=== PATIENT | male | born 1955 | race Caucasian/White ===

== ENCOUNTER → 2016-09-30 | Outpatient (CLI) | payer OTHER ==
[~2016-09-30] MED LIST: ALLO300T2 PO; AMLO2.5T PO; AMOX875T3 PO; ASPCH81X PO; ASPI81TA28 PO; ATOV5SUS PO; CHOL2000 PO; COEN150C PO; GUAI1TAB68 PO; INSPMPHMLG; LORA-741 PO; LORA0.5T12 PO; LOSA1TAB PO; LOSA50TA6 PO; LPR25 PO; MAGNESIUM PO; MULT-506 PO; NTRGSL/4 UT; NYSS/ PO; OMEG10007 PO; ONDA4TAB46 PO; PROTEIN PO; RANO500T PO; ROSU10TA35 PO; SIRO1TAB PO; SULF1TAB92 PO; VLT500 PO; [UNRECOGNIZED DRUG - CODE] PO
[2016-09-30 15:15] LABS: CHOLESTEROL/HDL RATIO 6.6
== END | disposition home or self-care (01) ==
LOC: C.LAB 13:11
PROVIDERS: ATTEND Internal Medicine Cardiovascular Disease
DX: E78.5 Hyperlipidemia, unspecified (principal)

== ENCOUNTER 2017-01-24 01:00 | Emergency (ER) | payer OTHER ==
[~2017-01-24] VITALS: Ht 182.9 cm; Wt 91.1 kg
[~2017-01-24 01:00] MED LIST changes: -AMOX875T3 PO; -ASPI81TA28 PO; -ATOV5SUS PO; -GUAI1TAB68 PO; -LORA-741 PO; -LOSA1TAB PO; -MAGNESIUM PO; -NYSS/ PO; -PROTEIN PO; -ROSU10TA35 PO; -SIRO1TAB PO; -SULF1TAB92 PO; -VLT500 PO
[2017-01-24] MEDS ORDERED: HYDROmorphone INJ 0.5 MG/0.5 ML SYR IV STA ×2 (01:27→04:02)
[2017-01-24] MEDS ORDERED: ONDANSETRON INJ 2 MG/ML 2 ML VIAL IV STA (01:31)
--- NOTE | 2017-01-24 01:31 | EMERGENCY ROOM VISIT NOTE ---
History Report prepared by Edsonibmason: Ag Tinajero Under the Supervision of: Dr. Blas Rowland D.O. First contact with patient: 01:19 Chief Complaint: CHEST PAIN Stated Complaint: CHEST PAIN History of Present Illness The patient is a 61 year old male who presents to the Emergency Room with complaints of persistent left-sided chest pain that started at approximately 1800 last night. The patient also has pain in his mid back. The patient denies diaphoresis or nausea. The patient was asleep at the onset of his pain. The pain is rated 5-6/10 in severity. 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 He did not take aspirin. The patient has a history of NE. He notes that he had radiation to the left arm when he had the NE , which he is not currently experiencing. The patient is s/p bone marrow transplant for which he is on immunosuppressants. He was previously on Bactrim but was switched to Atovaquone yesterday. The patient has a history of diabetes and wears an insulin pump. He denies any history of AAA or pancreatitis. Source of History: patient Onset: 1800 last night Position: chest (left) Symptom Intensity: 5 - 6 /10 Timing: other (persistent) Associated Symptoms: + back pain, No diaphoresis, No nausea Review of Systems See HPI for pertinent positives and negatives. A total of ten systems were reviewed and were otherwise negative. Past Medical & Surgical Medical Problems: (1) Back pain (2) CAD (coronary artery disease) (3) Clostridium difficile infection (4) CML (chronic myelocytic leukemia) (5) DM (diabetes mellitus) (6) Gout (7) Hypertension Surgical Problems: (1) Hx of CABG Family History Cancer Diabetes mellitus Gallbladder disease Heart disease Hypertension Social History Smoking Status: Former Smoker Drug Use: none Marital Status: Housing Status: lives with significant other Occupation Status: retired Current/Historical Medications Scheduled Allopurinol (Zyloprim), 300 MG PO QAM Amlodipine (Norvasc), 2.5 MG PO BID Atovaquone (Atovaquone), 5 ML PO BID Cholecalciferol (Vitamin D3), 2,000 UNIT PO QAM Coenzyme Q10 (Ubidecarenone) (Co Q-10), 100 MG PO QPM Insulin Human Lispro (Insulin Humalog Pump ), 1 DOSE N/A UD Losartan Potassium (Cozaar), 50 MG PO DAILY Metoprolol Tartrate (Lopressor), 25 MG PO BID Rosuvastatin Calcium (Rosuvastatin Calcium), 10 MG PO Q2D Sirolimus (Sirolimus), 2 MG PO DAILY Valacyclovir HCl (Valacyclovir HCl), 500 MG PO BID [Magnesium + Protein], 133 MG PO BID Scheduled PRN Lorazepam (Lorazepam), 0.5 MG PO HS PRN for Sleep Nitroglycerin (Nitrostat), 0.4 MG UT UD PRN for Chest Pain Ondansetron Hcl (Zofran), 4 MG PO Q6 PRN for Nausea Allergies Coded Allergies: Dasatinib (Verified Allergy, Severe, SHORTNESS OF BREATH, 01/24/17) PLEURAL EFFUSION Pioglitazone (Verified Allergy, Unknown, UNKNOWN, 01/24/17) Physical Exam Vital Signs Date Time Temp Pulse Resp B/P Pulse Ox O2 Delivery O2 Flow Rate FiO2 01/24/17 04:29 99 Nasal Cannula 2.0 01/24/17 04:23 100 16 178/89 96 Room Air 01/24/17 02:40 93 16 183/95 95 Room Air 01/24/17 02:03 92 16 160/73 98 Room Air 01/24/17 01:47 98 Room Air 01/24/17 01:41 37.1 94 20 186/77 99 Room Air 01/24/17 01:15 94 01/24/17 01:04 98 Room Air Physical Exam GENERAL: Awake, alert, well-appearing, in no distress HENT: Normocephalic, atraumatic. Oropharynx unremarkable. EYES: Normal conjunctiva. Sclera non-icteric. NECK: Supple. No nuchal rigidity. FROM. No JVD. RESPIRATORY: Clear to auscultation. CARDIAC: Regular rate, normal rhythm. Extremities warm and well perfused. Pulses equal. ABDOMEN: Tender in the mid epigastrium, no rebound or guarding. No abnormal aortic pulsations or masses. RECTAL: Deferred. MUSCULOSKELETAL: Chest examination reveals no tenderness. The back is symmetrical on inspection without obvious abnormality. There is no CVA tenderness to palpation. No joint edema. LOWER EXTREMITIES: Calves are equal size bilaterally and non-tender. No edema. No discoloration. NEURO: Normal sensorium. No sensory or motor deficits noted. SKIN: No rash or jaundice noted. Medical Decision & Procedures ER Provider Diagnostic Interpretation: X ray results as stated below per my interpretation. Other radiology results as stated below per my review and radiologist interpretation Chest One View Portable: No acute findings. CT ABDOMEN & PELVIS: Prior from 06/24/15. Mild fat stranding superior to the pancreatic head and medial to the duodenal bulb. May represent peptic ulcer disease. No significant duodenal wall thickening. No free air. However query tiny defect of the duodenal wall versus artifactual appearance and volume averaging series 3 image 140-143. Raises possibility of early contained perforation. Also consider pancreatitis. Small hiatal hernia. Distended gallbladder with small gallstones or focal wall calcification. Correlate for cholecystitis. Normal appendix. No bowel obstruction. Vascular calcifications including the coronary arteries. Mild nonspecific perinephric stranding. Radiologist: Hillary Caro MD. Laboratory Results 01/24/17 01:35 Red Blood Count 3.33, Mean Corpuscular Volume 87.7, Mean Corpuscular Hemoglobin 29.7, Mean Corpuscular Hemoglobin Concent 33.9, Mean Platelet Volume 9.6, Neutrophils (%) (Auto) 64.5, Lymphocytes (%) (Auto) 25.7, Monocytes (%) (Auto) 5.3, Eosinophils (%) (Auto) 4.1, Basophils (%) (Auto) 0.2, Neutrophils # (Auto) 3.32, Lymphocytes # (Auto) 1.32, Monocytes # (Auto) 0.27, Eosinophils # (Auto) 0.21, Basophils # (Auto) 0.01 01/24/17 01:35 Test 01/24/17 01:35 01/24/17 02:45 White Blood Count 5.14 K/uL (4.8-10.8) Red Blood Count 3.33 M/uL (4.7-6.1) Hemoglobin 9.9 g/dL (14.0-18.0) Hematocrit 29.2 % (42-52) Mean Corpuscular Volume 87.7 fL (80-100) Mean Corpuscular Hemoglobin 29.7 pg (25-34) Mean Corpuscular Hemoglobin Concent 33.9 g/dl (32-36) Platelet Count 25 K/uL (130-400) Mean Platelet Volume 9.6 fL (7.4-10.4) Neutrophils (%) (Auto) 64.5 % Lymphocytes (%) (Auto) 25.7 % Monocytes (%) (Auto) 5.3 % Eosinophils (%) (Auto) 4.1 % Basophils (%) (Auto) 0.2 % Neutrophils # (Auto) 3.32 K/uL (1.4-6.5) Lymphocytes # (Auto) 1.32 K/uL (1.2-3.4) Monocytes # (Auto) 0.27 K/uL (0.11-0.59) Eosinophils # (Auto) 0.21 K/uL (0-0.5) Basophils # (Auto) 0.01 K/uL (0-0.2) RDW Standard Deviation 46.9 fL (36.4-46.3) RDW Coefficient of Variation 14.6 % (11.5-14.5) Immature Granulocyte % (Auto) 0.2 % Immature Granulocyte # (Auto) 0.01 K/uL (0.00-0.02) Platelet Estimate SIGNIFIC DECREASED Red Blood Cell Morphology Unremarkable Anion Gap 4.0 mmol/L (3-11) Est Creatinine Clear Calc Drug Dose 83.8 ml/min Estimated GFR () 93.6 Estimated GFR (Non- 80.7 BUN/Creatinine Ratio 17.8 (10-20) Calcium Level 9.4 mg/dl (8.5-10.1) Total Bilirubin 0.3 mg/dl (0.2-1) Direct Bilirubin < 0.1 mg/dl (0-0.2) Aspartate Amino Transf (AST/SGOT) 47 U/L (15-37) Alanine Aminotransferase (ALT/SGPT) 47 U/L (12-78) Alkaline Phosphatase 96 U/L (45-117) Total Protein 7.1 gm/dl (6.4-8.2) Albumin 3.7 gm/dl (3.4-5.0) Lipase 77 U/L (73-393) Bedside Troponin I 0.010 ng/ml (0-0.045) KL-Yyw-K-Type Natriuretic Peptide 166 pg/ml (0-900) Laboratory results reviewed by me Medications Administered Medications (Trade) Dose Ordered Sig/Gianni Route Start Time Stop Time Status Last Admin Dose Admin Hydromorphone HCl (Dilaudid Inj) 1 mg NOW STAT IV 01/24/17 01:27 01/24/17 01:29 DC 01/24/17 01:38 1 MG Ondansetron HCl (Zofran Inj) 4 mg NOW STAT IV 01/24/17 01:31 01/24/17 01:32 DC 01/24/17 01:38 4 MG Hydromorphone HCl (Dilaudid Inj) 1 mg NOW STAT IV 01/24/17 04:02 01/24/17 04:04 DC 01/24/17 04:02 1 MG Piperacillin Sod/ Tazobactam Sod (Zosyn Iv) 4.5 gm NOW STAT IV 01/24/17 04:02 01/24/17 04:04 DC 01/24/17 04:02 4.5 GM ECG Indication: chest pain Rate (beats per minute): 78 Rhythm: normal sinus Findings: no acute ischemic change, left axis deviation, other (PRWP) ED Course 0120: The patient was evaluated in room A2. A complete history and physical exam was performed. 0127: Dilaudid 1 mg IV. 0131: Zofran 4 mg IV. 0400: Spoke with the patient and his at bedside. The patient's pain is returning in the mid epigastrium. We will start antibiotics and pain medication. They kane like me to contact [facility] for continuity of care. 0402: Flagyl / NSS 500 mg IV, Zosyn 4.5 gm IV, Dilaudid 1 mg IV. 0415: Pantoprazole sodium 40 mg / syringe 10 ml @ 5 mls/min. 0430: Discussed the case with Dr. Barnhart at [facility]. The patient was accepted for transfer. 0508: Reassessed the patient. Medical Decision Differential diagnosis includes unstable angina, acute NE, acute gastritis, acute pancreatitis, roll-out AAA. Patient was started on IV fluids IV Zofran IV Dilaudid IV antibiotics IV Protonix. Case was discussed with the patient's at bedside and we have determined that it would be best at the patient were transferred to a higher level of care at [facility] where the patient has been seen for O'Ria transplant in the past and for continuity of care. I have spoken with Dr. Barnhart from the hemoptic program at 4:30 AM and he has accepted the patient for transfer and we are currently awaiting transfer status for this patient Consults Time Called: 040 Consulting Physician: Dr. Barnhart, [facility] Returned Call: [phone] Impression Primary Impression: Abdominal pain Additional Impressions: Cholecystitis Duodenal ulcer CML (chronic myelocytic leukemia) Scribe Attestation The scribe's documentation has been prepared under my direction and personally reviewed by me in its entirety. I confirm that the note above accurately reflects all work, treatment, procedures, and medical decision making performed by me. Departure Information Dispostion Transfer Acute Care Facility Referrals RV. Mauro MD (PCP) Patient Instructions My [facility] Problem Qualifiers Primary Impression: Abdominal pain Abdominal location: epigastric Qualified Codes: R10.13 - Epigastric pain
[2017-01-24 01:41] VITALS: TEMP 37.1; Ht 182.9 cm; Wt 91.1 kg
[2017-01-24] MEDS ORDERED: OPTIRAY 320 IV PRN (01:45)
[2017-01-24 02:07] LABS: ALT/SGPT 47 U/L (12-78); AST/SGOT 47 U/L (15-37); BLOOD UREA NITROGEN 18 mg/dl (7-18); BUN/CREATININE RATIO 17.8 (10-20); CALCIUM 9.4 mg/dl (8.5-10.1); CARBON DIOXIDE 31 mmol/L (21-32); CHLORIDE 107 mmol/L (98-107); CREATININE 0.99 mg/dl (0.60-1.40); GLUCOSE 205 mg/dl (70-99); SODIUM 142 mmol/L (136-145)
[2017-01-24 02:10] LABS: ALKALINE PHOSPHATASE 96 U/L (45-117)
[2017-01-24 02:12] LABS: BASO % 0.2 %; BASO ABS # 0.01 K/uL (0-0.2); COMPLETE YES; EOS % 4.1 %; HEMATOCRIT 29.2 % (42-52); IG% 0.2 %; LYMPH % 25.7 %; LYMPH ABS # 1.32 K/uL (1.2-3.4); MEAN CELL VOLUME 87.7 fL (80-100); MEAN CORPUSCULAR HEMOGLOBIN 29.7 pg (25-34); MEAN CORPUSCULAR HGB CONC 33.9 g/dl (32-36); MEAN PLATELET VOLUME 9.6 fL (7.4-10.4); MONO % 5.3 %; NEUT % 64.5 %; PLATELET COUNT 25 K/uL (130-400); PLT ESTIMATE SIGNIFIC DECREASED; RED BLOOD COUNT 3.33 M/uL (4.7-6.1); WHITE BLOOD COUNT 5.14 K/uL (4.8-10.8)
[2017-01-24] MEDS ORDERED: ATOV5SUS PO (02:34)
[2017-01-24] MEDS ORDERED: SIRO1TAB PO (02:34)
[2017-01-24] MEDS ORDERED: ROSU10TA24 PO (02:35)
[2017-01-24] MEDS ORDERED: VLT500 PO (02:35)
[2017-01-24] MEDS ORDERED: MAGNESIUM PO (02:38)
[2017-01-24] MEDS ORDERED: PROTEIN PO (02:38)
[2017-01-24 03:06] LABS: POINT OF CARE TROPONIN I 0.01 ng/ml (0-0.045)
[2017-01-24] MEDS ORDERED: PIPERACILLIN/TAZOBACTAM 4.5 GM/100ML D5W IV STA (04:02)
[2017-01-24] MEDS ORDERED: METRONIDAZOLE 500MG / 100ML NSS IV STA (04:02)
[2017-01-24] MEDS ORDERED: HYDROmorphone INJ 1 MG/ML SYR ONE (04:14)
[2017-01-24] MEDS ORDERED: PANTOprazole INJ 40 MG in SYRINGE 0 ML IV ONE (04:15)
[2017-01-24 04:29] VITALS: O2SAT 99
[2017-01-24 07:30] VITALS: BP 163/78; PULSE 82; O2SAT 100
--- NOTE | 2017-01-24 07:32 | DIAGNOSTIC IMAGING REPORT ---
ABDOMEN AND PELVIS CT WITH IV CONTRAST CT DOSE: 432.67 mGy.cm HISTORY: Epigastric pain TECHNIQUE: Multiaxial CT images of the abdomen and pelvis were performed following the use of intravenous contrast. COMPARISON STUDY: Abdomen and pelvis CT 06/24/2015. FINDINGS: The gallbladder is mildly distended. There are few small gallstones. Mild inflammatory change near the naz hepatis, superior to the pancreatic head and adjacent to the duodenal bulb. There is no bowel wall thickening. No pneumoperitoneum or pneumatosis. There are few punctate calcifications within the pancreas. The pancreas enhances normally. The spleen, adrenal glands, and liver are unremarkable. Mild bilateral perinephric edema which is likely chronic. No renal stones or hydronephrosis. Calcified plaque within the normal caliber abdominal aorta. Poststernotomy changes. The lung bases are clear. The bladder is unremarkable. No evidence for bowel obstruction. Normal appendix. IMPRESSION: 1. Mild inflammatory change at the naz hepatis and superior to the pancreatic head. The gallbladder is mildly distended and there are a few small gallstones. These findings could represent developing acute cholecystitis, ascending cholangitis, or pancreatitis. Peptic ulcer disease is considered less likely but not entirely excluded. No pneumoperitoneum or pneumatosis. 2. No evidence for bowel obstruction. Electronically signed by: Sandro Dunn M.D. 01/24/2017 7:30 AM Dictated Date/Time: 01/24/2017 7:25 AM
--- NOTE | 2017-01-24 08:06 | DIAGNOSTIC IMAGING REPORT ---
SINGLE VIEW CHEST CLINICAL HISTORY: Atypical chest pain. FINDINGS: An AP, portable, upright chest radiograph is compared to study dated 06/23/2015 and correlated with chest CT dated 05/19/2013. The examination is degraded by portable technique and patient rotation. The patient is status post midline sternotomy. The heart is mildly enlarged. The pulmonary vasculature is noncongested. Chronic interstitial thickening and elevation of the right hemidiaphragm is similar to previous. No airspace consolidation, large pleural effusion, or pneumothorax is seen. The bony thorax is grossly intact. IMPRESSION: Cardiac enlargement with no acute cardiopulmonary abnormality. Electronically signed by: Tom Phillips M.D. 01/24/2017 8:04 AM Dictated Date/Time: 01/24/2017 8:04 AM
[2017-08-26] MEDS ORDERED: MAGNESIUM PO (08:45)
[2017-08-26] MEDS ORDERED: LORA-741 PO (08:45)
[2017-08-26] MEDS ORDERED: AMLO2.5T PO (08:45)
[2017-08-26] MEDS ORDERED: PROTEIN PO (08:45)
[2017-08-26] MEDS ORDERED: LOSA1TAB PO (08:45)
== END 2017-01-24 08:18 | disposition short-term general hospital (02) ==
LOC: C.EDB 01:01 → C.EDA 08:18
DX: K26.9 Duodenal ulcer, unspecified as acute or chronic, without hemorrhage or perforation (principal); K80.40 Calculus of bile duct with cholecystitis, unspecified, without obstruction; C93.10 Chronic myelomonocytic leukemia not having achieved remission; I10 Essential (primary) hypertension; E11.9 Type 2 diabetes mellitus without complications; M10.9 Gout, unspecified; I25.10 Atherosclerotic heart disease of native coronary artery without angina pectoris; Z86.19 Personal history of other infectious and parasitic diseases; Z95.1 Presence of aortocoronary bypass graft; Z87.891 Personal history of nicotine dependence; Z79.899 Other long term (current) drug therapy; Z79.4 Long term (current) use of insulin; Z88.8 Allergy status to other drugs, medicaments and biological substances; Z80.9 Family history of malignant neoplasm, unspecified; Z83.3 Family history of diabetes mellitus; Z83.79 Family history of other diseases of the digestive system; Z82.49 Family history of ischemic heart disease and other diseases of the circulatory system

== ENCOUNTER → 2017-02-11 | Outpatient (CLI) | payer OTHER ==
[~2017-02-11] MED LIST changes: +AMOX875T3 PO; -ASPCH81X PO; +ASPI81TA28 PO; +ATOV5SUS PO; +GUAI1TAB68 PO; +LORA-741 PO; +LOSA1TAB PO; +MAGNESIUM PO; -MULT-506 PO; +NYSS/ PO; +PROTEIN PO; -RANO500T PO; +ROSU10TA24 PO; +SIRO1TAB PO; +SULF1TAB92 PO; +VLT500 PO; -[UNRECOGNIZED DRUG - CODE] PO
--- NOTE | 2017-02-11 14:06 | DIAGNOSTIC IMAGING REPORT ---
NUCLEAR MEDICINE HEPATOBILIARY SCAN HISTORY: R74.0 ALT (SGPT) level [id number] CML (chronic myeloid leukemia COMPARISON: Abdomen and pelvis CT 01/24/2017. TECHNIQUE: Immediately following the intravenous administration of 5.5 mCi Tc-99m Choletec, dynamic anterior abdominal imaging was performed. FINDINGS: Uniform hepatic tracer accumulation is shown. Prompt intrahepatic biliary excretion is seen. The gallbladder, common bile duct, and small bowel are all visualized by 22 minutes. This appearance represents the normal sequence of biliary excretion. IMPRESSION: 1. No evidence for cystic duct obstruction. Electronically signed by: Sandro Dunn M.D. 02/11/2017 2:04 PM Dictated Date/Time: 02/11/2017 2:04 PM
== END | disposition home or self-care (01) ==
LOC: C.NUCL 12:36
PROVIDERS: ATTEND Internal Medicine
DX: C92.10 Chronic myeloid leukemia, BCR/ABL-positive, not having achieved remission (principal); R10.9 Unspecified abdominal pain; R74.0 Nonspecific elevation of levels of transaminase and lactic acid dehydrogenase [LDH]; Z94.84 Stem cells transplant status

== ENCOUNTER 2017-07-14 19:07 | Inpatient (IN) | payer OTHER ==
[~2017-07-14] VITALS: Ht 182.9 cm; Wt 89.0 kg
[~2017-07-14 19:07] MED LIST changes: -AMOX875T3 PO; -ASPI81TA28 PO; -GUAI1TAB68 PO; -LORA-741 PO; -LOSA1TAB PO; -NYSS/ PO; -OMEG10007 PO; -SULF1TAB92 PO
[2017-07-14] MEDS ORDERED: ACETAMINOPHEN 500 MG TAB PO STA (20:32)
[2017-07-14] MEDS ORDERED: SODIUM CHLORIDE 0.9% 1000ML 1,000 ML IV ONE (20:32)
--- NOTE | 2017-07-14 20:36 | EMERGENCY ROOM VISIT NOTE ---
History Report prepared by Dawood: Bonnie Hernandez Under the Supervision of: Dr. Kevin Vo M.D. First contact with patient: 20:21 Chief Complaint: OTHER COMPLAINT Stated Complaint: COUGH,FEVER, 10 MONTH POST BONE MARROW TRANSPLANT History of Present Illness The patient is a 61 year old male who presents to the Emergency Room with complaints of a persistent fever that started yesterday. He is accompanied by his . The highest temperature he recorded at home was 102 degrees. Tylenol taken last night provided no relief for the fever. He also complains of a cough , sore throat and rhinorrhea. 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 He no longer takes chemotherapy. He is on chronic Bactrim and Valtrex. He denies any recent abdominal pain. His reports he follows with [facility], and a contact number for their casey saw operator is [phone]. Source of History: patient Onset: yesterday Position: other (global) Timing: other (persistent) Modifying Factors (Relieving): tylenol Associated Symptoms: + sorethroat, + cough, No abdominal pain Review of Systems See HPI for pertinent positives & negatives. A total of 10 systems reviewed and were otherwise negative. Past Medical & Surgical Medical Problems: (1) Back pain (2) CAD (coronary artery disease) (3) Clostridium difficile infection (4) CML (chronic myelocytic leukemia) (5) Deafness in left ear (6) DM (diabetes mellitus) (7) Elevated CK-MB level (8) Gout (9) History of SD (myocardial infarction) (10) Hypertension (11) Pancytopenia Surgical Problems: (1) Hx of CABG Family History Cancer Diabetes mellitus Gallbladder disease Heart disease Hypertension Social History Smoking Status: Never Smoker Alcohol Use: none Drug Use: none Marital Status: Housing Status: lives with significant other Occupation Status: retired Current/Historical Medications Scheduled Allopurinol (Zyloprim), 300 MG PO QAM Amlodipine (Norvasc), 2.5 MG PO BID Aspirin (Aspirin Ec), 81 MG PO DAILY Cholecalciferol (Vitamin D3), 2,000 UNIT PO QAM Coenzyme Q10 (Ubidecarenone) (Co Q-10), 200 MG PO QPM Fish Oil (Drake-3), 1 CAP PO QAM Insulin Human Lispro (Insulin Humalog Pump ), 1 DOSE N/A UD Losartan Potassium (Cozaar), 50 MG PO DAILY Metoprolol Tartrate (Lopressor), 25 MG PO BID Rosuvastatin Calcium (Rosuvastatin Calcium), 10 MG PO DAILY Trimethoprim/Sulfamethoxazole (Bactrim 400MG/80MG), 1 TAB PO QPM Valacyclovir HCl (Valacyclovir HCl), 500 MG PO BID [Magnesium + Protein], 133 MG PO DAILY Scheduled PRN Lorazepam (Lorazepam), 0.5 MG PO HS PRN for Sleep Nitroglycerin (Nitrostat), 0.4 MG UT UD PRN for Chest Pain Allergies Coded Allergies: Dasatinib (Verified Allergy, Severe, SHORTNESS OF BREATH, 07/14/17) PLEURAL EFFUSION Pioglitazone (Verified Allergy, Unknown, UNKNOWN, 07/14/17) Physical Exam Vital Signs Date Time Temp Pulse Resp B/P (MAP) Pulse Ox O2 Delivery O2 Flow Rate FiO2 07/14/17 23:05 128 07/14/17 23:02 37.0 07/14/17 22:23 127 21 149/74 99 Room Air 07/14/17 21:12 90 16 95 Room Air 07/14/17 20:47 87 16 145/88 97 Room Air 07/14/17 20:41 97 Room Air 07/14/17 19:46 38.4 95 13 154/79 97 Room Air 07/14/17 19:42 95 07/14/17 19:23 37.9 109 20 175/78 95 Room Air Physical Exam GENERAL: Patient is a healthy-appearing well-nourished 61 year old male HEAD: Normocephalic atraumatic EYES: Ocular movements intact pupils equal and react to light OROPHARYNX mucous membranes are moist no exudates present no erythema or edema present NECK: Supple no nuchal rigidity, no evidence of meningitis or encephalitis on exam CHEST: Good equal expansion LUNGS: Clear and equal to auscultation CARDIAC: Normal S1 and S2 ABDOMEN: Soft nontender no guarding BACK: No CVA tenderness EXTREMITIES: No pain upon palpation normal muscle strength in all groups no clubbing cyanosis or edema NEURO: Patient is following commands and answering questions appropriately. Alert and oriented x3 Cranial Nerves 2-12 grossly intact Medical Decision & Procedures ER Provider Diagnostic Interpretation: Radiology results as stated below per my review and radiologist interpretation: CHEST ONE VIEW PORTABLE HISTORY: 61 years-old Male Pt c/o cough acute cough COMPARISON: Chest radiograph 01/24/2017 TECHNIQUE: Portable upright AP view of the chest FINDINGS: Cardiac silhouette is upper limits of normal, unchanged. Prior median sternotomy. There is atherosclerosis of the aorta. No pneumothorax, pleural effusion, focal airspace consolidation or overt pulmonary edema. Bones appear grossly intact. IMPRESSION: No acute cardiopulmonary process. The above report was generated using voice recognition software. It may contain grammatical, syntax or spelling errors. Electronically signed by: Graham Messina M.D. 07/14/2017 9:30 PM Laboratory Results Test 07/14/17 21:20 07/14/17 21:23 07/14/17 22:25 07/14/17 22:30 Prothrombin Time 11.1 SECONDS (9.0-12.0) Prothromb Time International Ratio 1.0 (0.9-1.1) Activated Partial Thromboplast Time 27.3 SECONDS (21.0-31.0) Partial Thromboplastin Ratio 1.1 Bedside Lactic Acid Venous 1.10 mmol/L (0.90-1.70) Influenza Type A (RT-PCR) Neg for Influ A (NEG) Influenza Type A Antigen Neg for Influ A (NEG) Influenza Type B Antigen Neg for Influ B (NEG) Influenza Type B (RT-PCR) Neg for Influ B (NEG) Urine Color YELLOW Urine Appearance CLEAR (CLEAR) Urine pH 6.5 (4.5-7.5) Urine Specific [place] 1.013 (1.000-1.030) Urine Protein NEG (NEG) Urine Glucose (UA) NEG (NEG) Urine Ketones 1+ (NEG) Urine Occult Blood NEG (NEG) Urine Nitrite NEG (NEG) Urine Bilirubin NEG (NEG) Urine Urobilinogen NEG (NEG) Urine Leukocyte Esterase NEG (NEG) Urine WBC (Auto) 0 /hpf (0-5) Urine RBC (Auto) 0-4 /hpf (0-4) Urine Hyaline Casts (Auto) 0 /lpf (0-5) Urine Epithelial Cells (Auto) 0-5 /lpf (0-5) Urine Bacteria (Auto) NEG (NEG) Labs reviewed by ED physician. Medications Administered Medications (Trade) Dose Ordered Sig/Gianni Route Start Time Stop Time Status Last Admin Dose Admin Sodium Chloride 1,000 ml @ 999 mls/hr Q1H1M ONCE IV 07/14/17 20:32 07/14/17 21:32 DC 07/14/17 20:32 999 MLS/HR Acetaminophen (Tylenol Tab) 1,000 mg NOW STAT PO 07/14/17 20:32 07/14/17 20:35 DC 07/14/17 20:46 1,000 MG Albuterol/ Ipratropium (Duoneb) 12 ml ONE ONCE INH 07/14/17 20:45 07/14/17 20:46 DC 07/14/17 21:12 12 ML Sodium Chloride 1,000 ml @ 999 mls/hr Q1H1M STAT IV 07/14/17 22:06 07/14/17 23:06 DC 07/14/17 22:06 999 MLS/HR ECG Indication: other (fever) Rate (beats per minute): 85 Rhythm: normal sinus Findings: no acute ischemic change, no ectopy ED Course 2026: Past medical records reviewed. The patient was evaluated in room B3. A complete history and physical examination was performed. 2031: Acetaminophen 1000 mg PO, NSS 1000 ml @ 999 mls/hr IV. 2044: DuoNeb 12 ml INH. 2142: I reevaluated the patient. He is resting comfortably. 3: I discussed the patients case with Dr. Byrnes, [facility]. She recommends the patient be further evaluated by the inpatient hospital medicine team. 2218: I discussed the patients case with Dr. Alejo, [facility] Hospitalist. The patient will be further evaluated. 2306: NSS 1000 ml @ 999 mls/hr IV. Medical Decision Prior records/ancillary studies reviewed. Triage Nursing notes reviewed. The patient's history was concerning for fever. Differential diagnosis: Etiologies such as viral syndrome, otitis, pharyngitis, pneumonia, influenza, meningitis, urinary tract infection, sepsis, bacteremia, as well as others were entertained. This is a 61-year-old male who presents emergency department complaining of fever. The patient was sent in by his primary care physician over concerns that he is status post stem cell transplant. He was also complaining of a sore throat. He has elevations in his CK and MB fractions. I did discuss the case with [facility]. They felt that the patient should be admitted to the hospital. I did discuss the case with the hospitalist service who agreed to admit the patient. Patient was in agreement with the treatment plan. Medication Reconcilliation Current Medication List: was personally reviewed by me Blood Pressure Screening Patient's blood pressure: Elevated blood pressure The patients elevated blood pressure will be further managed by the hospital medicine team. Consults Time Called: 2199 Consulting Physician: Dr. Byrnes, [facility] Returned Call: [phone] I discussed the patients case with Dr. Byrnes, [facility]. She recommends the patient be further evaluated by the inpatient hospital medicine team. Additional Consults: Time Called: 2215 Consulted Physician: Dr. Alejo [facility] Hospitalist Returned Call: [phone] Additional Comments: I discussed the patients case with Dr. Alejo [facility] Hospitalist. The patient will be further evaluated. Impression Primary Impression: Fever Scribe Attestation The scribe's documentation has been prepared under my direction and personally reviewed by me in its entirety. I confirm that the note above accurately reflects all work, treatment, procedures, and medical decision making performed by me. Departure Information Dispostion Being Evaluated By Hospitalist Referrals RV. Mauro MD (PCP) Patient Instructions My [facility] Problem Qualifiers Primary Impression: Fever Fever type: unspecified Qualified Codes: R50.9 - Fever, unspecified
[2017-07-14] MEDS ORDERED: ALBUT/IPRATROP 3MG/0.5MG NEB 3 ML VIAL INH ONE (20:45)
[2017-07-14 21:12] VITALS: PULSE 90; O2SAT 95
[2017-07-14 21:25] LABS: HEMATOCRIT 30.6 % (42-52); MEAN CELL VOLUME 95.6 fL (80-100); MEAN CORPUSCULAR HEMOGLOBIN 33.1 pg (25-34); MEAN CORPUSCULAR HGB CONC 34.6 g/dl (32-36); WHITE BLOOD COUNT 3.73 K/uL (4.8-10.8)
[2017-07-14 21:28] LABS: BASO % 0.3 %; BASO ABS # 0.01 K/uL (0-0.2); EOS % 0.5 %; LYMPH % 20.4 %; LYMPH ABS # 0.76 K/uL (1.2-3.4); MEAN PLATELET VOLUME 8.8 fL (7.4-10.4); MONO % 6.2 %; NEUT % 72.6 %; PLATELET COUNT 63 K/uL (130-400)
--- NOTE | 2017-07-14 21:32 | DIAGNOSTIC IMAGING REPORT ---
CHEST ONE VIEW PORTABLE HISTORY: 61 years-old Male Pt c/o cough acute cough COMPARISON: Chest radiograph 01/24/2017 TECHNIQUE: Portable upright AP view of the chest FINDINGS: Cardiac silhouette is upper limits of normal, unchanged. Prior median sternotomy. There is atherosclerosis of the aorta. No pneumothorax, pleural effusion, focal airspace consolidation or overt pulmonary edema. Bones appear grossly intact. IMPRESSION: No acute cardiopulmonary process. The above report was generated using voice recognition software. It may contain grammatical, syntax or spelling errors. Electronically signed by: Graham Messina M.D. 07/14/2017 9:30 PM Dictated Date/Time: 07/14/2017 9:29 PM
[2017-07-14 21:40] LABS: PARTIAL THROMBOPLASTIN RATIO 1.1; PROTHROMBIN TIME (PATIENT) 11.1 SECONDS (9.0-12.0)
[2017-07-14 21:47] LABS: COMPLETE YES
[2017-07-14] MEDS ORDERED: ASPI81TA28 PO (21:48)
[2017-07-14] MEDS ORDERED: SULF1TAB92 PO (21:48)
[2017-07-14] MEDS ORDERED: OMEG10007 PO (21:48)
[2017-07-14 21:54] LABS: BUN/CREATININE RATIO 16.9 (10-20); CALCIUM 9.5 mg/dl (8.5-10.1); CREATININE 0.99 mg/dl (0.60-1.40); POTASSIUM 4.1 mmol/L (3.5-5.1)
[2017-07-14 21:59] LABS: ALB/GLOB RATIO 1.1 (0.9-2); CKMB/CK RATIO 0.7 (0-3.0)
[2017-07-14] MEDS ORDERED: SODIUM CHLORIDE 0.9% 1000ML 1,000 ML IV STA (22:06)
[2017-07-14 22:51] LABS: URINE APPEARANCE CLEAR (CLEAR); URINE BILIRUBIN NEG (NEG); URINE COLOR YELLOW; URINE EPITHELIAL CELL AUTO 0-5 /lpf (0-5); URINE NITRITE NEG (NEG); URINE PH 6.5 (4.5-7.5); URINE SPECIFIC GRAVITY 1.013 (1.000-1.030); UROBILINOGEN NEG (NEG); ZZUR CULT IF INDIC CLEAN CATCH NO
[2017-07-14 22:53] LABS: MANUAL MICROSCOPIC REQUIRED? NO; REVIEW REQ? NO
[2017-07-14] MEDS ORDERED: POLYETHYLENE (MIRALAX) 17 GM PACK PO PRN (23:15)
[2017-07-14] MEDS ORDERED: ONDANSETRON INJ 2 MG/ML 2 ML VIAL IV PRN (23:15)
[2017-07-14] MEDS ORDERED: ACETAMINOPHEN 325 MG TAB PO PRN (23:15)
[2017-07-14] MEDS ORDERED: ACETAMINOPHEN IV 650 MG in EMPTY BAG 0 ML IV PRN (23:15)
[2017-07-14] MEDS ORDERED: SODIUM CHLORIDE 0.9% 1000ML 1,000 ML IV SCH (23:15)
--- NOTE | 2017-07-14 23:51 | History and Physical ---
History & Physical Date & Time of Service: Jul 14, 2017 at 23:50 Chief Complaint: Cough,Fever, 10 Month Post Bone Marrow Transplant Primary Care Physician: RV. Mauro MD History of Present Illness Source: patient, hospital records This is a 61 yo m with a history of bone marrow transplant approx 10 months prior. The patient has a history of CML and had tried multiple medical modalities however was unable to tolerate. He had underwent a bone marrow transplant which was done at [facility]. The patient is currently not on any immunosuppressants however he is being treated with prophylactic antibiotics and antivirals. The patient is covered with Bactrim and Acyclovir. The patient notes that since yesterday he has been suffering from a persistent fever with the highest temperature being 102F. He also noted worsening sore throat, rhinorrhea and a non productive cough since yesterday. Considering the patient' s history there was concern for a developing infection and the patient decided to come to the ED for evaluation. Aside from the fever he was noted to have an elevation of CK-MB which according to the patient is a BL for him and he has had extensive work up for this. Past Medical/Surgical History Medical Problems: (1) Back pain Status: Chronic (2) CAD (coronary artery disease) Status: Chronic (3) Clostridium difficile infection Status: Resolved (4) CML (chronic myelocytic leukemia) Status: Chronic (5) DM (diabetes mellitus) Status: Chronic (6) Gout Status: Resolved (7) Hypertension Status: Chronic Surgical Problems: (1) Hx of CABG Status: Resolved Family History Cancer Diabetes mellitus Gallbladder disease Heart disease Hypertension Social History Smoking Status: Never Smoker Smokeless Tobacco Use: No Alcohol Use: none Drug Use: none Marital Status: Housing status: lives with family Occupational Status: retired Immunizations History of Influenza Vaccine: Yes History of Tetanus Vaccine?: Yes History of Pneumococcal: Yes Pneumococcal Date: Oct 30, 2011 History of Hepatitis B Vaccine: No Multi-Drug Resistant Organisms History of MDRO: No Allergies Coded Allergies: Dasatinib (Verified Allergy, Severe, SHORTNESS OF BREATH, 07/14/17) PLEURAL EFFUSION Pioglitazone (Verified Allergy, Unknown, UNKNOWN, 07/14/17) Home Medications Scheduled Allopurinol (Zyloprim), 300 MG PO QAM Amlodipine (Norvasc), 2.5 MG PO BID Aspirin (Aspirin Ec), 81 MG PO DAILY Cholecalciferol (Vitamin D3), 2,000 UNIT PO QAM Coenzyme Q10 (Ubidecarenone) (Co Q-10), 200 MG PO QPM Fish Oil ([place]-3), 1 CAP PO QAM Insulin Human Lispro (Insulin Humalog Pump ), 1 DOSE N/A UD Losartan Potassium (Cozaar), 50 MG PO DAILY Metoprolol Tartrate (Lopressor), 25 MG PO BID Rosuvastatin Calcium (Rosuvastatin Calcium), 10 MG PO DAILY Trimethoprim/Sulfamethoxazole (Bactrim 400MG/80MG), 1 TAB PO QPM Valacyclovir HCl (Valacyclovir HCl), 500 MG PO BID [Magnesium + Protein], 133 MG PO DAILY Scheduled PRN Lorazepam (Lorazepam), 0.5 MG PO HS PRN for Sleep Nitroglycerin (Nitrostat), 0.4 MG UT UD PRN for Chest Pain Review of Systems Constitutional: + fever, + chills, + sweats Eyes: No worsening of vision ENT: + nasal symptoms, + sore throat, No hearing loss Respiratory: + cough, No sputum, No wheezing, No shortness of breath, No dyspnea on exertion, No dyspnea at rest Cardiovascular: No chest pain Abdomen: No pain, No nausea, No vomiting, No diarrhea, No constipation Musculoskeletal: No joint pain Genitourinary - Male: No hematuria, No dysuria Neurologic: + weakness, No numbness/tingling, No balance problems Psychiatric: No depression symptoms Endocrine: + fatigue Hematologic / Lymphatic: No abnormal bleeding/bruising Integumentary: No rash Physical Exam Vital Signs Date Time Temp Pulse Resp B/P (MAP) Pulse Ox O2 Delivery O2 Flow Rate FiO2 07/14/17 23:34 37.0 119 20 145/77 98 07/14/17 23:05 128 07/14/17 23:02 37.0 07/14/17 22:23 127 21 149/74 99 Room Air 07/14/17 21:12 90 16 95 Room Air 07/14/17 20:47 87 16 145/88 97 Room Air 07/14/17 20:41 97 Room Air 07/14/17 19:46 38.4 95 13 154/79 97 Room Air 07/14/17 19:42 95 07/14/17 19:23 37.9 109 20 175/78 95 Room Air General Appearance: no apparent distress Head: normocephalic, atraumatic Eyes: normal inspection ENT: + pertinent finding (dry mucus membranes, questionable white patches indicative of thrush on the tongue) Neck: supple Respiratory/Chest: no respiratory distress, no accessory muscle use, + pertinent finding (coarse breath sounds) Cardiovascular: regular rate, rhythm, normal peripheral pulses, + systolic murmur (3/6) Abdomen/GI: normal bowel sounds, non tender, soft Back: normal inspection Neurologic/Psych: alert, normal mood/affect, oriented x 3 Skin: normal color, warm/dry, no rash, + pertinent finding (flushed and diaphoretic) Lymphatic: no adenopathy Diagnostics Laboratory Results Results Past 24 Hours Test 07/14/17 21:20 07/14/17 21:23 07/14/17 22:25 07/14/17 22:30 Range/Units White Blood Count 3.73 4.8-10.8 K/uL Red Blood Count 3.20 4.7-6.1 M/uL Hemoglobin 10.6 14.0-18.0 g/dL Hematocrit 30.6 42-52 % Mean Corpuscular Volume 95.6 80-100 fL Mean Corpuscular Hemoglobin 33.1 25-34 pg Mean Corpuscular Hemoglobin Concent 34.6 32-36 g/dl Platelet Count 63 130-400 K/uL Mean Platelet Volume 8.8 7.4-10.4 fL Neutrophils (%) (Auto) 72.6 % Lymphocytes (%) (Auto) 20.4 % Monocytes (%) (Auto) 6.2 % Eosinophils (%) (Auto) 0.5 % Basophils (%) (Auto) 0.3 % Neutrophils # (Auto) 2.71 1.4-6.5 K/uL Lymphocytes # (Auto) 0.76 1.2-3.4 K/uL Monocytes # (Auto) 0.23 0.11-0.59 K/uL Eosinophils # (Auto) 0.02 0-0.5 K/uL Basophils # (Auto) 0.01 0-0.2 K/uL RDW Standard Deviation 47.3 36.4-46.3 fL RDW Coefficient of Variation 13.6 11.5-14.5 % Immature Granulocyte % (Auto) 0.0 % Immature Granulocyte # (Auto) 0.00 0.00-0.02 K/uL Prothrombin Time 11.1 9.0-12.0 SECONDS Prothromb Time International Ratio 1.0 0.9-1.1 Activated Partial Thromboplast Time 27.3 21.0-31.0 SECONDS Partial Thromboplastin Ratio 1.1 Sodium Level 137 136-145 mmol/L Potassium Level 4.1 3.5-5.1 mmol/L Chloride Level 103 98-107 mmol/L Carbon Dioxide Level 26 21-32 mmol/L Anion Gap 8.0 3-11 mmol/L Blood Urea Nitrogen 17 7-18 mg/dl Creatinine 0.99 0.60-1.40 mg/dl Est Creatinine Clear Calc Drug Dose 83.8 ml/min Estimated GFR () 93.6 Estimated GFR (Non- 80.7 BUN/Creatinine Ratio 16.9 10-20 Random Glucose 153 70-99 mg/dl Calcium Level 9.5 8.5-10.1 mg/dl Total Bilirubin 0.4 0.2-1 mg/dl Aspartate Amino Transf (AST/SGOT) 38 15-37 U/L Alanine Aminotransferase (ALT/SGPT) 36 12-78 U/L Alkaline Phosphatase 78 45-117 U/L Total Creatine Kinase 727 39-308 U/L Creatine Kinase MB 5.0 0.5-3.6 ng/ml Creatine Kinase MB Ratio 0.7 0-3.0 Troponin I 0.018 0-0.045 ng/ml Total Protein 7.0 6.4-8.2 gm/dl Albumin 3.7 3.4-5.0 gm/dl Globulin 3.3 2.5-4.0 gm/dl Albumin/Globulin Ratio 1.1 0.9-2 Bedside Lactic Acid Venous 1.10 0.90-1.70 mmol/L Influenza Type A Antigen Neg for Influ A NEG Influenza Type B Antigen Neg for Influ B NEG Urine Color YELLOW Urine Appearance CLEAR CLEAR Urine pH 6.5 4.5-7.5 Urine Specific [place] 1.013 1.000-1.030 Urine Protein NEG NEG Urine Glucose (UA) NEG NEG Urine Ketones 1+ NEG Urine Occult Blood NEG NEG Urine Nitrite NEG NEG Urine Bilirubin NEG NEG Urine Urobilinogen NEG NEG Urine Leukocyte Esterase NEG NEG Urine WBC (Auto) 0 0-5 /hpf Urine RBC (Auto) 0-4 0-4 /hpf Urine Hyaline Casts (Auto) 0 0-5 /lpf Urine Epithelial Cells (Auto) 0-5 0-5 /lpf Urine Bacteria (Auto) NEG NEG Test 07/14/17 23:29 Range/Units Microbiology Results 07/14/17 Blood Culture, Received Pending 07/14/17 Blood Culture, Received Pending Diagnostic Radiology CHEST ONE VIEW PORTABLE HISTORY: 61 years-old Male Pt c/o cough acute cough COMPARISON: Chest radiograph 01/24/2017 TECHNIQUE: Portable upright AP view of the chest FINDINGS: Cardiac silhouette is upper limits of normal, unchanged. Prior median sternotomy. There is atherosclerosis of the aorta. No pneumothorax, pleural effusion, focal airspace consolidation or overt pulmonary edema. Bones appear grossly intact. IMPRESSION: No acute cardiopulmonary process. Impression Assessment and Plan This is a 61 yo m with a history of bone marrow transplant, CABG, HTN, DMII and suffering from a febrile illness. It is unclear if the patient upper respiratory symptoms are secondary to a viral or bacterial source however considering the patient's history he will be placed on empiric antibiotics. Febrile illness secondary to viral vs bacterial source in the setting of h/o BMT - tachycardia; tele admission and if patient hemodynamically stable in am would be a candidate to transfer to med surg - Procalcitonin and repeat lactate - Zosyn and Vanco; bactrim prophylaxis held - cont'd acyclovir bid - guaifenesin and Xopenex - cbc in the am Elevated CK-MB - recheck in am however patient does have a BL elevation - recent increase could be secondary to dehydration - NSS @ 75cc/h , did receive 2 L bolus of NSS in ED Thrush? - Fluconazole 200 mg IV daily - Nystatin in am DMII - patient does have a humolog pump, will continue this with AC/HS BSG as patient not currently placed on steroids - if BSG unacceptable will be converted to lantus/ ISS Hypertension - continue amlodipine 2.5 mg daily, Losartan 50 mg daily, Metoprolol Tartrate 25 mg bid Hypercholesterolemia/ CAD - most recent echo December 2014 - EF 55-65%, mild aortic sclerosis without stenosis - continue 10 mg rosuvastatin - continue asa 81 mg daily - I&O and daily weights FULL CODE Attending Addendum: I have physically seen and examined this patient, have directed the resident's medical activities, and agree with the H&P as noted above with the following exceptions as noted. The patient is awake, alert and oriented 3, well-developed and well-nourished , normocephalic and atraumatic, lying in bed , looks diaphoretic and mildly ill , in no acute distress. HEENT--PERRL, EOMI, mucous membranes and oropharynx dry. Neck--supple, no JVD or bruits, thyroid normal, trachea midline, no adenopathy. Heart--normal S1 and S2, no extra beats, no murmurs, rubs or gallops. Lungs--few coarse breath sounds bilaterally, no respiratory distress, no accessory muscle use. Abdomen--normal bowel sounds and soft, nontender and nondistended, no hernias or masses, no organomegaly. Extremities--no cyanosis, clubbing or edema. There are good distal pulses b/l. Dermatologic--normal skin turgor, normal color, warm and dry, no abnormal lymph nodes, no rash. Neurologic--cranial nerves II through XII grossly intact, motor and sensory examination normal. Rheumatologic--normal range of motion, nontender, muscles and joints. Psychiatric--normal affect. Assessment and Plan: Upper respiratory infection/febrile illness/status post BMT in October-- Place on vancomycin IV and Zosyn IV. Hold Bactrim prophylaxis. Continue valacyclovir 500 mg by mouth twice a day prophylaxis. Guaifenesin extended release 600 mg by mouth twice a day Xopenex/Atrovent nebulizers every 6 hours while awake and every 2 hours when necessary. Creatine kinase-- CK-MB ratio is negative, therefore is not a concern. He's had a chronically elevated CK, has had a medical workup performed at [place], will recheck in the a.m. after hydration. NSS at 75 ML's per hour, has received 2 L normal saline in ED, but still looks at least 2 L down at this time. Diabetes mellitus-- Patient has his own insulin pump and continuous glucose monitor, and will use to cover his own sugars. Level of Care Telemetry Advanced Directives Existing Advance Directive: No Existing Living Will: No Existing Power of Carrier Driver: No Resuscitation Status FULL RESUSCITATION VTE Prophylaxis VTE Risk Assessment Done? Y/N: Yes Risk Level: Moderate Given or contraindicated: SCD's Social Service Consult None Apply Note Total Time: Critical Care 30 - 74 minutes Additional Copies To RV. Mauro MD
[2017-07-14 23:53] LABS: INFLUENZA A PCR Neg for Influ A (NEG); INFLUENZA B PCR Neg for Influ B (NEG)
[2017-07-15] VITALS (14 sets, daily range): BP systolic 107–161; BP diastolic 49–107; PULSE 75–120; TEMP 36.6–38.4; O2SAT 92–99; Ht 182.9 cm; Wt 89.0 kg
[2017-07-15] MEDS ORDERED: IV FLUIDS COMPLETED PRN (00:15)
[2017-07-15] MEDS ORDERED: PIPERACILL/TAZOBAC CONSULT ACTIVE PRN (00:15)
[2017-07-15] MEDS ORDERED: VANCOMYCIN CONSULT ACTIVE PRN (00:15)
[2017-07-15] MEDS ORDERED: PIPERACILL/TAZOBAC IV 4.5 GM in DEXTROSE 5% 100ML IV ONE (00:30)
[2017-07-15] MEDS ORDERED: NITROGLYCERIN 0.4 MG SL PER TAB CHARGE UT PRN (00:30)
[2017-07-15] MEDS ORDERED: VANCOMYCIN INJ 2,250 MG in SODIUM CHLORIDE 0.9% 500ML 500 ML IV SCH (00:30)
[2017-07-15] MEDS ORDERED: FLUCONAZOLE / NSS 200 MG in PREMIXED NSS 100 ML IV STA (00:45)
[2017-07-15] MEDS ORDERED: ACETAMINOPHEN IV 650 MG in EMPTY BAG 0 ML IV PRN (01:00)
[2017-07-15] MEDS ORDERED: ONDANSETRON INJ 2 MG/ML 2 ML VIAL IV PRN (01:00)
[2017-07-15] MEDS ORDERED: POLYETHYLENE (MIRALAX) 17 GM PACK PO PRN (01:00)
[2017-07-15] MEDS: GUAIFENESIN 200 MG TAB PO SCH ×7 (01:07→23:55)
[2017-07-15] MEDS ORDERED: DEXTROSE 50% 50 ML SYR IV PRN (01:15)
[2017-07-15] MEDS ORDERED: GLUCOSE 40% GEL 15 GM TUBE PO PRN (01:15)
[2017-07-15] MEDS ORDERED: GLUCOSE 10 TABS/TUBE PO PRN (01:15)
[2017-07-15] MEDS ORDERED: INSULIN HUMAN LISPRO (humaLOG) 100 UNITS/ML VIAL SC PRN (01:15)
[2017-07-15] MEDS ORDERED: GLUCAGON FOR INJ 1 MG VIAL SQ PRN (01:15)
[2017-07-15] MEDS: LORAZEPAM 0.5 MG TAB PO PRN ×2 (01:29→20:38)
[2017-07-15] MEDS: METOPROLOL TARTRATE 25 MG TAB PO SCH ×3 (01:30→20:31)
[2017-07-15] MEDS: AMLODIPINE BESYLATE 5 MG TAB PO SCH ×3 (01:30→20:30)
[2017-07-15] MEDS: ROSUVASTATIN CALCIUM 10 MG TAB PO SCH ×2 (01:31→20:31)
[2017-07-15] MEDS: SODIUM CHLORIDE 0.9% 1000ML 1,000 ML IV SCH ×3 (01:32→22:04)
[2017-07-15] MEDS ORDERED: COUGH DROP (SUGAR FREE) LOZ 24 LOZ/1 BOX ONE (01:37)
[2017-07-15] MEDS ORDERED: NURSING DECISION MEDICATION ORDER SCH (01:45)
[2017-07-15] MEDS ORDERED: COUGH DROP (SUGAR FREE) LOZ 24 LOZ/1 BOX PO PRN (01:45)
[2017-07-15] MEDS: IPRATROPIUM BROMIDE NEB SOLN 0.02% 2.5 ML VIAL INH SCH ×3 (03:00→18:57)
[2017-07-15] MEDS ORDERED: LEVALBUTEROL 1.25MG/0.5ML NEB INH SCH (03:00)
[2017-07-15] MEDS ORDERED: LEVALBUTEROL/IPRATROPIUM NEB INH SCH (03:00)
[2017-07-15] MEDS ORDERED: NURSING VERBAL MED ORDER ONE (04:45)
[2017-07-15] MEDS: PIPERACILL/TAZOBAC IV 4.5 GM in DEXTROSE 5% 100ML IV SCH ×3 (05:38→22:04)
[2017-07-15] MEDS ORDERED: PIPERACILL/TAZOBAC IV 3.375 GM in DEXTROSE 5% 100ML 100 ML IV SCH (06:00)
[2017-07-15 06:15] LABS: HEMATOCRIT 26.9 % (42-52); MEAN CELL VOLUME 95.7 fL (80-100); MEAN CORPUSCULAR HEMOGLOBIN 33.1 pg (25-34); MEAN CORPUSCULAR HGB CONC 34.6 g/dl (32-36); RED BLOOD COUNT 2.81 M/uL (4.7-6.1); WHITE BLOOD COUNT 3.27 K/uL (4.8-10.8)
[2017-07-15 06:24] LABS: MEAN PLATELET VOLUME 9.4 fL (7.4-10.4); PLATELET COUNT 53 K/uL (130-400)
[2017-07-15 06:45] LABS: CALCIUM 8.7 mg/dl (8.5-10.1); CREATININE 0.86 mg/dl (0.60-1.40); POTASSIUM 4.1 mmol/L (3.5-5.1)
[2017-07-15 06:56] LABS: ALB/GLOB RATIO 1.1 (0.9-2); CKMB/CK RATIO 0.5 (0-3.0)
[2017-07-15 06:58] LABS: BASO % 0.3 %; BASO ABS # 0.01 K/uL (0-0.2); COMPLETE YES; IG% 0.3 %; LYMPH % 16.8 %; LYMPH ABS # 0.55 K/uL (1.2-3.4); MONO % 7.6 %
--- NOTE | 2017-07-15 08:41 | Pharmacy Progress Note ---
Pharmacy Abx Initial Consult Date of Service Jul 15, 2017. Pharmacy Dosing Scope Date of Consult: 07/15/17 Consultation requested by: Dr. Laguna Pharmacy is consulted to initiate IV VANCOMYCIN and ZOSYN therapy, order appropriate labs and adjust drug dose/frequency. Subjective The patient is a 61 year old male admitted on Jul 14, 2017 at 23:11 for cough, fever in the setting of BMT 10 months ago. Objective Height (Feet): 6 Height (Inches): 0.00 Weight (Kilograms): 87.700 Vital Signs (Past 12Hrs) Vital Signs Past 12 Hours Date Time Temp Pulse Resp B/P (MAP) Pulse Ox O2 Delivery O2 Flow Rate FiO2 07/15/17 07:44 37.1 94 18 161/78 (105) 99 Room Air 07/15/17 04:07 37.3 110 22 138/107 (117) 97 Room Air 07/15/17 04:00 Room Air 07/15/17 03:30 90 16 98 Room Air 07/15/17 00:17 Room Air 07/15/17 00:10 37.5 120 20 107/69 (82) 96 Room Air 07/14/17 23:34 37.0 119 20 145/77 98 07/14/17 23:05 128 07/14/17 23:02 37.0 07/14/17 22:23 127 21 149/74 99 Room Air 07/14/17 21:12 90 16 95 Room Air 07/14/17 20:47 87 16 145/88 97 Room Air 07/14/17 20:41 97 Room Air Lab Results (24Hrs) Laboratory Tests (24 Hours) Test 07/14/17 23:29 07/15/17 05:53 Lactic Acid Level 1.8 mmol/L (0.4-2.0) Procalcitonin < 0.05 ng/ml (0-0.5) White Blood Count 3.27 K/uL (4.8-10.8) L Red Blood Count 2.81 M/uL (4.7-6.1) L Hemoglobin 9.3 g/dL (14.0-18.0) L Hematocrit 26.9 % (42-52) L Mean Corpuscular Volume 95.7 fL (80-100) Mean Corpuscular Hemoglobin 33.1 pg (25-34) Mean Corpuscular Hemoglobin Concent 34.6 g/dl (32-36) Platelet Count 53 K/uL (130-400) L Mean Platelet Volume 9.4 fL (7.4-10.4) Neutrophils (%) (Auto) 75.0 % Lymphocytes (%) (Auto) 16.8 % Monocytes (%) (Auto) 7.6 % Eosinophils (%) (Auto) 0.0 % Basophils (%) (Auto) 0.3 % Neutrophils # (Auto) 2.45 K/uL (1.4-6.5) Lymphocytes # (Auto) 0.55 K/uL (1.2-3.4) L Monocytes # (Auto) 0.25 K/uL (0.11-0.59) Eosinophils # (Auto) 0.00 K/uL (0-0.5) Basophils # (Auto) 0.01 K/uL (0-0.2) Total Creatine Kinase 749 U/L (39-308) H Micro Results Date/Time Source Procedure Growth Status 07/14/17 21:20 Blood Blood Culture Pending Received 07/14/17 21:12 Blood Blood Culture Pending Received Risk Factors for Resistance * H/O BMT * Antimicrobial use within the last 90 days: prophylactic SMX/TMP + Acyclovir Assessment & Plan Assessment * 61 year old male admitted for fever and cough in the setting BMT in the last year for CML - bacterial vs viral etiology * He was receiving SMX/TMP + Acyclovir prophylaxis prior to admission * LA and procalcitonin are not elevated * CXR read as no acute process * Influ A/B PCR negative * Blood Cx's pending * Empiric broad-spectrum ABX therapy has been ordered for 48 hours * Renal fxn appears to near his baseline (baseline SCr ~0.9-1.0) Plan Vancomycin IV * Loading dose: 2250 mg (25 mg/kg) * Maintenance dose: 1500 mg IV (17.1 mg/kg) every 12 hours * Goal trough level for pulm infxn : 15 to 20 mcg/mL * No trough has been ordered at this time as therapy is only to continue for 48 hours, however if therapy is to continue beyond this will check a trough w/ 4th or 5th dose * p'kinetic estimates: Vd 0.7L/kg, half-life ~8-9 hours Piperacillin/tazobactam * 4.5 g bolus administered over 30 minutes, then 4.5 g IV extended infusion every 8 hours for CrCl greater than 20 mL/min OR every 12 hours for CrCl 20 mL/ min or less and dialysis. * Aggressive dosing selected due risk factors for drug resistant organism Pharmacy will continue to follow and will adjust dose/frequency as necessary. Thank you.
[2017-07-15] MEDS: LOSARTAN POTASSIUM 50 MG TAB PO SCH (08:58)
[2017-07-15] MEDS: ASPIRIN 81 MG ECTAB PO SCH (08:59)
[2017-07-15] MEDS: OMEGA-3 (PURIFIED FISH OIL) 1 GM CAP PO SCH (09:00)
[2017-07-15] MEDS ORDERED: VANCOMYCIN INJ 1,000 MG in SODIUM CHLORIDE 0.9% 250ML 250 ML IV SCH ×2 (09:00→11:30)
[2017-07-15] MEDS: ALLOPURINOL 300 MG TAB PO SCH (09:00)
[2017-07-15] MEDS: CHOLECALCIFEROL 1000 INTER.UNIT TAB PO SCH (09:00)
[2017-07-15] MEDS ORDERED: ROSUVASTATIN CALCIUM 10 MG TAB PO SCH (09:00)
[2017-07-15] MEDS: ACETAMINOPHEN 325 MG TAB PO PRN ×2 (09:02→17:28)
[2017-07-15] MEDS: VANCOMYCIN INJ 1,500 MG in SODIUM CHLORIDE 0.9% 500ML 500 ML IV SCH ×2 (11:37→23:55)
--- NOTE | 2017-07-15 18:24 | Family Medicine Progress Note ---
Progress Note Date of Service Jul 15, 2017. Subjective Pt evaluation today including: conversation w/ patient, conversation w/ family , physical exam, chart review, lab review, review of studies, conversation w/ client relationship consultant, review of inpatient medication list Patient feels better currently, he is no longer feeling febrile, no longer experiencing tremors, and says his cough has been calm as of the past few hours. His major complaint currently is a sore throat. states that she recovered from a sore throat a few days ago, although she was never febrile. Patient denies CP, SOB, abdominal pain, headaches, sinus pain, nausea, dysuria, or diarrhea. Medications Results Past 24 Hours Test 07/15/17 05:53 07/15/17 06:51 07/15/17 10:51 07/15/17 14:10 Range/Units White Blood Count 3.27 4.8-10.8 K/uL Red Blood Count 2.81 4.7-6.1 M/uL Hemoglobin 9.3 14.0-18.0 g/dL Hematocrit 26.9 42-52 % Mean Corpuscular Volume 95.7 80-100 fL Mean Corpuscular Hemoglobin 33.1 25-34 pg Mean Corpuscular Hemoglobin Concent 34.6 32-36 g/dl Platelet Count 53 130-400 K/uL Mean Platelet Volume 9.4 7.4-10.4 fL Neutrophils (%) (Auto) 75.0 % Lymphocytes (%) (Auto) 16.8 % Monocytes (%) (Auto) 7.6 % Eosinophils (%) (Auto) 0.0 % Basophils (%) (Auto) 0.3 % Neutrophils # (Auto) 2.45 1.4-6.5 K/uL Lymphocytes # (Auto) 0.55 1.2-3.4 K/uL Monocytes # (Auto) 0.25 0.11-0.59 K/uL Eosinophils # (Auto) 0.00 0-0.5 K/uL Basophils # (Auto) 0.01 0-0.2 K/uL RDW Standard Deviation 47.7 36.4-46.3 fL RDW Coefficient of Variation 13.6 11.5-14.5 % Immature Granulocyte % (Auto) 0.3 % Immature Granulocyte # (Auto) 0.01 0.00-0.02 K/uL Sodium Level 143 136-145 mmol/L Potassium Level 4.1 3.5-5.1 mmol/L Chloride Level 111 98-107 mmol/L Carbon Dioxide Level 24 21-32 mmol/L Anion Gap 8.0 3-11 mmol/L Blood Urea Nitrogen 13 7-18 mg/dl Creatinine 0.86 0.60-1.40 mg/dl Est Creatinine Clear Calc Drug Dose 96.5 ml/min Estimated GFR () 107.0 Estimated GFR (Non- 92.3 BUN/Creatinine Ratio 15.0 10-20 Random Glucose 93 70-99 mg/dl Calcium Level 8.7 8.5-10.1 mg/dl Total Bilirubin 0.5 0.2-1 mg/dl Aspartate Amino Transf (AST/SGOT) 31 15-37 U/L Alanine Aminotransferase (ALT/SGPT) 30 12-78 U/L Alkaline Phosphatase 65 45-117 U/L Total Creatine Kinase 749 39-308 U/L Creatine Kinase MB 3.7 0.5-3.6 ng/ml Creatine Kinase MB Ratio 0.5 0-3.0 Troponin I 0.086 0-0.045 ng/ml Total Protein 6.0 6.4-8.2 gm/dl Albumin 3.1 3.4-5.0 gm/dl Globulin 2.9 2.5-4.0 gm/dl Albumin/Globulin Ratio 1.1 0.9-2 Bedside Glucose 103 147 70-99 mg/dl Test 07/15/17 16:08 07/15/17 18:42 07/15/17 18:44 07/15/17 20:28 Range/Units Bedside Glucose 146 257 70-99 mg/dl Monoscreen NEG NEG Troponin I 0.088 0-0.045 ng/ml Test 07/15/17 22:00 Range/Units Microbiology Results 07/15/17 Group A Streptococcus Screen - Final, Resulted SPECIMEN NEGATIVE FOR GROUP A BETA ST... 07/15/17 Group A Streptococcus Screen (ROSITA), Resulted Pending 07/15/17 Throat Culture, Received Pending 07/15/17 MRSA DNA Surveillance Screen - Final, Complete Specimen Negative for MRSA by DNA Probe Objective Vital Signs Date Time Temp Pulse Resp B/P (MAP) Pulse Ox O2 Delivery O2 Flow Rate FiO2 07/15/17 19:36 36.6 87 18 155/73 (100) 96 Room Air 07/15/17 16:15 37.8 80 18 155/67 (96) 97 Room Air 07/15/17 15:30 95 Room Air 07/15/17 15:25 36.9 76 18 143/49 (80) 98 Room Air 07/15/17 13:11 Room Air 07/15/17 12:00 96 Room Air 07/15/17 11:27 37.4 78 18 133/69 (90) 96 Room Air 07/15/17 10:48 99 Room Air 07/15/17 09:04 38.4 07/15/17 08:00 92 Room Air 07/15/17 07:44 37.1 94 18 161/78 (105) 99 Room Air 07/15/17 04:07 37.3 110 22 138/107 (117) 97 Room Air 07/15/17 04:00 Room Air 07/15/17 03:30 90 16 98 Room Air 07/15/17 00:17 Room Air 07/15/17 00:10 37.5 120 20 107/69 (82) 96 Room Air 07/14/17 23:34 37.0 119 20 145/77 98 07/14/17 23:05 128 07/14/17 23:02 37.0 Physical Exam General Appearance: WD/WN, no apparent distress Eyes: normal inspection ENT: hearing grossly normal, pharynx normal (minimal injection), + pertinent finding (tongue coated) Neck: supple, + adenopathy present (with mild tenderness) Respiratory/Chest: lungs clear, normal breath sounds, no respiratory distress, no accessory muscle use Cardiovascular: regular rate, rhythm, no murmur, + systolic murmur Abdomen: normal bowel sounds, non tender, soft Extremities: no pedal edema, no calf tenderness Neurologic/Psychiatric: alert, normal mood/affect, oriented x 3 Skin: normal color, warm/dry, no rash Laboratory Results Results Past 24 Hours Test 07/15/17 05:53 07/15/17 06:51 07/15/17 10:51 07/15/17 14:10 Range/Units White Blood Count 3.27 4.8-10.8 K/uL Red Blood Count 2.81 4.7-6.1 M/uL Hemoglobin 9.3 14.0-18.0 g/dL Hematocrit 26.9 42-52 % Mean Corpuscular Volume 95.7 80-100 fL Mean Corpuscular Hemoglobin 33.1 25-34 pg Mean Corpuscular Hemoglobin Concent 34.6 32-36 g/dl Platelet Count 53 130-400 K/uL Mean Platelet Volume 9.4 7.4-10.4 fL Neutrophils (%) (Auto) 75.0 % Lymphocytes (%) (Auto) 16.8 % Monocytes (%) (Auto) 7.6 % Eosinophils (%) (Auto) 0.0 % Basophils (%) (Auto) 0.3 % Neutrophils # (Auto) 2.45 1.4-6.5 K/uL Lymphocytes # (Auto) 0.55 1.2-3.4 K/uL Monocytes # (Auto) 0.25 0.11-0.59 K/uL Eosinophils # (Auto) 0.00 0-0.5 K/uL Basophils # (Auto) 0.01 0-0.2 K/uL RDW Standard Deviation 47.7 36.4-46.3 fL RDW Coefficient of Variation 13.6 11.5-14.5 % Immature Granulocyte % (Auto) 0.3 % Immature Granulocyte # (Auto) 0.01 0.00-0.02 K/uL Sodium Level 143 136-145 mmol/L Potassium Level 4.1 3.5-5.1 mmol/L Chloride Level 111 98-107 mmol/L Carbon Dioxide Level 24 21-32 mmol/L Anion Gap 8.0 3-11 mmol/L Blood Urea Nitrogen 13 7-18 mg/dl Creatinine 0.86 0.60-1.40 mg/dl Est Creatinine Clear Calc Drug Dose 96.5 ml/min Estimated GFR () 107.0 Estimated GFR (Non- 92.3 BUN/Creatinine Ratio 15.0 10-20 Random Glucose 93 70-99 mg/dl Calcium Level 8.7 8.5-10.1 mg/dl Total Bilirubin 0.5 0.2-1 mg/dl Aspartate Amino Transf (AST/SGOT) 31 15-37 U/L Alanine Aminotransferase (ALT/SGPT) 30 12-78 U/L Alkaline Phosphatase 65 45-117 U/L Total Creatine Kinase 749 39-308 U/L Creatine Kinase MB 3.7 0.5-3.6 ng/ml Creatine Kinase MB Ratio 0.5 0-3.0 Troponin I 0.086 0-0.045 ng/ml Total Protein 6.0 6.4-8.2 gm/dl Albumin 3.1 3.4-5.0 gm/dl Globulin 2.9 2.5-4.0 gm/dl Albumin/Globulin Ratio 1.1 0.9-2 Bedside Glucose 103 147 70-99 mg/dl Test 07/15/17 16:08 07/15/17 18:42 07/15/17 18:44 07/15/17 20:28 Range/Units Bedside Glucose 146 257 70-99 mg/dl Monoscreen NEG NEG Troponin I 0.088 0-0.045 ng/ml Test 07/15/17 22:00 Range/Units Microbiology Results 07/15/17 Group A Streptococcus Screen - Final, Resulted SPECIMEN NEGATIVE FOR GROUP A BETA ST... 07/15/17 Group A Streptococcus Screen (ROSITA), Resulted Pending 07/15/17 Throat Culture, Received Pending 07/15/17 MRSA DNA Surveillance Screen - Final, Complete Specimen Negative for MRSA by DNA Probe Assessment and Plan 61 yo m with a history of bone marrow transplant, CABG, HTN, DMII and suffering from a febrile illness. It is unclear if the patient upper respiratory symptoms are secondary to a viral or bacterial source however considering the patient's history he will be placed on empiric antibiotics. Febrile illness secondary to viral vs bacterial source in the setting of h/o BMT - CXR WNL, UA negative. Procalcitonin and lactate negative. Influenza negative. Rapid strep negative. Updated Dr. Anderson from [place] who suggested likely viral etiology continuing current management. - Continue IV Zosyn and Vanco; bactrim + valacyclovir BID - Throat culture and strep culture pending. Parainfluenza, adenovirus and EBV pending. - Guaifenesin - Trend CBC Elevated CK-MB and troponin - Baseline CK elevation. Possibly secondary to dehydration, s/p 2L bolus of NSS in ED - NSS @ 75cc/h - EKG PRN chest pain Thrush? - Fluconazole 200 mg IV daily - Consider Nystatin tomorrow DMII - Patient has own Humolog pump, will continue this with AC/HS BSG as patient not currently placed on steroids - If BSG unacceptable will be converted to Lantus/ ISS Hypertension - Continue amlodipine 2.5 mg daily, Losartan 50 mg daily, Metoprolol Tartrate 25 mg BID CAD/ HLD - Most recent echo December 2014 - EF 55-65%, mild aortic sclerosis without stenosis - ASA 81 mg daily - Rosuvastatin 10 mg FULL CODE Continued [facility] stay due to: multiple IV medications needed Resident Tracking Resident Involvement: Resident Care Provided Care Provided: [facility] Reviewed: Pt Seen/Exam by Me History c/o sorethroat and feeling tired. Constitutional: acknowledges: fever Respiratory: negative: short of breath Cardiovascular: denies chest pain Gastrointestinal/Abdominal: negative: abdominal pain, diarrhea General Appearance: no apparent distress Respiratory: lungs clear, no respiratory distress Cardiovascular: regular rate, rhythm Gastrointestinal: normal bowel sounds, non tender, soft Neurologic/Psychiatric: alert, oriented x 3 Skin Characteristics: warm/dry Assessment/Plan Resident Physician Supervision Note: I independently interviewed and examined the patient and verified the holloway history and physical, reviewed labs and image studies, discussed the case with the resident Dr. Diehl and agree with the findings and care plan.
[2017-07-15] MEDS ORDERED: NON-FORMULARY MEDICATION (Coenzyme Q10 (Ubidecarenone) (Co Q-10) 200 MG) PO SCH (21:00)
[2017-07-16] VITALS (8 sets, daily range): BP systolic 112–138; BP diastolic 56–64; PULSE 60–78; TEMP 36.7–37.7; O2SAT 92–96
[2017-07-16] MEDS ORDERED: FLUCONAZOLE / NSS 200 MG in PREMIXED NSS 100 ML IV SCH (01:30)
[2017-07-16] MEDS: IPRATROPIUM BROMIDE NEB SOLN 0.02% 2.5 ML VIAL INH SCH ×3 (03:00→14:07)
[2017-07-16] MEDS: GUAIFENESIN 200 MG TAB PO SCH ×4 (04:00→16:34)
[2017-07-16] MEDS: PIPERACILL/TAZOBAC IV 4.5 GM in DEXTROSE 5% 100ML IV SCH ×2 (05:25→12:20)
[2017-07-16 06:06] LABS: HEMATOCRIT 26.2 % (42-52); MEAN CELL VOLUME 96.3 fL (80-100); MEAN CORPUSCULAR HEMOGLOBIN 34.2 pg (25-34); MEAN CORPUSCULAR HGB CONC 35.5 g/dl (32-36); RED BLOOD COUNT 2.72 M/uL (4.7-6.1); WHITE BLOOD COUNT 3.41 K/uL (4.8-10.8)
[2017-07-16 06:12] LABS: MEAN PLATELET VOLUME 9.2 fL (7.4-10.4); PLATELET COUNT 54 K/uL (130-400)
[2017-07-16 06:31] LABS: BUN/CREATININE RATIO 9.9 (10-20); CALCIUM 8.8 mg/dl (8.5-10.1); CREATININE 0.88 mg/dl (0.60-1.40); POTASSIUM 3.8 mmol/L (3.5-5.1)
[2017-07-16 06:46] LABS: BASO % 0.3 %; BASO ABS # 0.01 K/uL (0-0.2); COMPLETE YES; EOS % 1.2 %; LYMPH % 26.7 %; LYMPH ABS # 0.91 K/uL (1.2-3.4); MONO % 8.5 %; NEUT % 63.3 %
[2017-07-16] MEDS: ACETAMINOPHEN 325 MG TAB PO PRN (07:50)
[2017-07-16] MEDS: LOSARTAN POTASSIUM 50 MG TAB PO SCH (07:51)
[2017-07-16] MEDS: METOPROLOL TARTRATE 25 MG TAB PO SCH (07:52)
[2017-07-16] MEDS: ASPIRIN 81 MG ECTAB PO SCH (07:52)
[2017-07-16] MEDS: AMLODIPINE BESYLATE 5 MG TAB PO SCH (07:54)
[2017-07-16] MEDS: OMEGA-3 (PURIFIED FISH OIL) 1 GM CAP PO SCH (07:54)
[2017-07-16] MEDS: CHOLECALCIFEROL 1000 INTER.UNIT TAB PO SCH (07:55)
[2017-07-16] MEDS: ALLOPURINOL 300 MG TAB PO SCH (07:55)
[2017-07-16] MEDS: VANCOMYCIN INJ 1,500 MG in SODIUM CHLORIDE 0.9% 500ML 500 ML IV SCH (12:20)
[2017-07-16] MEDS: SODIUM CHLORIDE 0.9% 1000ML 1,000 ML IV SCH (16:36)
[2017-07-16] MEDS ORDERED: NYSS/ PO (17:34)
[2017-07-16] MEDS ORDERED: GUAI1TAB68 PO (17:34)
[2017-07-16] MEDS ORDERED: AMOX875T3 PO (17:34)
--- NOTE | 2017-07-16 17:48 | Discharge Instructions ---
Discharge Instructions Date of Service Jul 16, 2017. Admission Reason for Admission: Elevated Ck-Mb Level, Fever, Pancytopenia Discharge Discharge Diagnosis / Problem: Fever, elevated troponin Discharge Goals Goal(s): Decrease discomfort, Diagnostic testing, Therapeutic intervention Activity Recommendations Activity Limitations: resume your previous activity . Instructions / Follow-Up Instructions / Follow-Up You were admitted with febrile illness. Given your medical history you were started on empiric antibiotics, antifungals and continued your antivirals. Flu and strep A test was negative. Urine and chest xray were reassuring. Blood cultures are preliminary negative. Throat culture grew group B strep, although this can be a part of the normal throat denny. Your febrile illness may have contributed to dehydration and some heart strain, but your troponin trended downwards and with your absent cardiac symptoms were also reassuring. At time of discharge, you had been afebrile for 24 hours and feeling better. On discharge, you are being prescribed amoxicillin to be take twice daily for another 8 days (10 day course total). You have also been prescribed nystatin for thrush that is likely contributing to your throat discomfort, as well as guaifenesin to be taken as needed for cough. There is pending viral serology, but as they are send out labs, they make take time to return and would not impact management at this time. You may resume all other home medication as previous. Follow up with your PCP and oncologist in the next 1-2 weeks is recommended. Thank you for allowing us to participate in your care. Thrush? - Fluconazole 200 mg IV daily - Consider Nystatin tomorrow DMII - Patient has own Humolog pump, will continue this with AC/HS BSG as patient not currently placed on steroids - If BSG unacceptable will be converted to Lantus/ ISS Hypertension - Continue amlodipine 2.5 mg daily, Losartan 50 mg daily, Metoprolol Tartrate 25 mg BID CAD/ HLD - Most recent echo December 2014 - EF 55-65%, mild aortic sclerosis without stenosis - ASA 81 mg daily - Rosuvastatin 10 mg FULL CODE Current Hospital Diet Patient's current hospital diet: Diabetes Type 2 Diet, AHA Diet (Heart Healthy) , Low Sodium Diet (2gm Na) Discharge Diet Recommended Diet: AHA Diet (Heart Healthy), Low Sodium Diet (2gm Na), Diabetes Type 2 Diet Pending Studies Studies pending at discharge: yes List of pending studies: Final blood culture Final sputum culture Serology: adenovirus, RSV, parainfluenza, EBV, CMV Medical Emergencies . Who to Call and When: Medical Emergencies: If at any time you feel your situation is an emergency, please call 911 immediately. . Non-Emergent Contact Non-Emergency issues call your: Primary Care Provider, Oncologist Call Non-Emergent contact if: you have a fever . . "Provider Documentation" section prepared by Meka Diehl. . VTE Core Measure Inpt VTE Proph given/why not?: SCD's Resident Tracking Resident Involvement: Resident Care Provided Care Provided: Adult Hospital Medicine
--- NOTE | 2017-07-16 17:49 | Discharge Summary ---
Discharge Summary Date of Service Jul 16, 2017. Discharge Summary Admission Date: Jul 15, 2017 at 11:42 Discharge Date: Jul 16, 2017 Discharge Disposition: Home Principal Diagnosis: Febrile illness Immunizations: Have You Had Influenza Vaccine: Yes History of Tetanus Vaccine?: Yes History of Pneumococcal: Yes Pneumococcal Date: Oct 30, 2011 History of Hepatitis B Vaccine: No Medication Reconciliation New Medications: Amoxicillin (Amoxil) 875 Mg Tab 1 TAB PO BID for 10 Days, #17 TAB Nystatin (Nystatin Suspension) 1 Ml Susp 5 ML PO TID for 7 Days, #105 ML Guaifenesin (Organ-I Nr) 200 Mg Tab 200 MG PO Q4H PRN for Cough, #14 TAB Continued Medications: Allopurinol (Zyloprim) 300 Mg Tab 300 MG PO QAM Amlodipine (Norvasc) 2.5 Mg Tab 2.5 MG PO BID Aspirin (Aspirin Ec) 81 Mg Tab 81 MG PO DAILY Cholecalciferol (Vitamin D3) 2,000 Unit Cap 2000 UNIT PO QAM, 3 Refills Coenzyme Q10 (Ubidecarenone) (Co Q-10) 150 Mg Cap 200 MG PO QPM Fish Oil ([place]-3) 1 Ea Cap 1 CAP PO QAM, CAP Insulin Human Lispro (Insulin Humalog Pump ) Pump 1 DOSE N/A UD VIA SLIDING SCALE Lorazepam (Lorazepam) 0.5 Mg Tab 0.5 MG PO HS PRN for Sleep Losartan Potassium (Cozaar) 50 Mg Tab 50 MG PO DAILY, TAB Metoprolol Tartrate (Lopressor) 25 Mg Tab 25 MG PO BID Nitroglycerin (Nitrostat) 0.4 Mg Tab 0.4 MG UT UD PRN for Chest Pain, [address] ONE TABLET UNDER THE TONGUE EVERY FIVE MINUTES FOR UP TO 3 DOSES IF NEEDED FOR CHEST PAIN. Rosuvastatin Calcium (Rosuvastatin Calcium) 10 Mg Tab 10 MG PO DAILY Trimethoprim/Sulfamethoxazole (Bactrim 400MG/80MG) Tab 1 TAB PO QPM, TAB Valacyclovir HCl (Valacyclovir HCl) 500 Mg Tab 500 MG PO BID [Magnesium + Protein] () 133 MG PO DAILY Discharge Exam Patient feeling well. He has been afebrile for 24 hours. His cough is somewhat improved. He is tolerating diet without nausea and vomiting. He denies chills, sweats, chest pain, shortness of breath, abdominal pain. He is keen for home. Review of systems otherwise unremarkable. Physical Exam: General Appearance: WD/WN, no apparent distress Eyes: normal inspection ENT: hearing grossly normal, pharynx normal Neck: supple, + adenopathy present (Tenderness improved) Respiratory/Chest: lungs clear, normal breath sounds, no respiratory distress, no accessory muscle use Cardiovascular: regular rate, rhythm, no murmur, normal peripheral pulses Abdomen / GI: normal bowel sounds, non tender, soft Extremities: normal capillary refill, no pedal edema, normal range of motion Neurologic/Psychiatric: alert, normal mood/affect, oriented x 3 Skin: normal color, warm/dry, no rash Hospital Course 61 yo m with a history of bone marrow transplant, CABG, HTN, DMII and suffering from a febrile illness. 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 Febrile illness secondary to viral vs bacterial source in the setting of h/o BMT - CXR WNL, UA negative. Procalcitonin and lactate negative. Influenza negative. Rapid strep negative. Updated Dr. Anderson from [place] who suggested likely viral etiology continuing current management. - Continue IV Zosyn and Vanco; valacyclovir BID while inpatient - Throat culture showed group B strep. - Parainfluenza, adenovirus, CMV and EBV pending on discharge but do not affect management. Blood cultures also pending. - Discharged with amoxicillin 875mg BID x 10 days + Guaifenesin PRN cough Elevated CK-MB and troponin - Baseline CK elevation. Possibly secondary to dehydration, s/p 2L bolus of NSS in ED - NSS @ 75cc/h - EKG PRN chest pain Thrush? - Fluconazole 200 mg IV daily for fungal coverage - Discharged with Nystatin swish and swallow x 17-10 days DMII - Patient has own Humolog pump, will continue this with AC/HS BSG as patient not currently placed on steroids - If BSG unacceptable will be converted to Lantus/ ISS Hypertension - Continue amlodipine 2.5 mg daily, Losartan 50 mg daily, Metoprolol Tartrate 25 mg BID CAD/ HLD - Most recent echo December 2014 - EF 55-65%, mild aortic sclerosis without stenosis - ASA 81 mg daily - Rosuvastatin 10 mg FULL CODE Total Time Spent: Less than 30 minutes This includes examination of the patient, discharge planning, medication reconciliation, and communication with other providers. Discharge Instructions Please refer to the electronic Patient Visit Report (Discharge Instructions) for additional information. Resident Tracking Resident Involvement: Resident Care Provided Care Provided: Adult Hospital Medicine
[2017-07-16] MEDS ORDERED: VANCOMYCIN TROUGH ONE (23:30)
[2017-07-17 13:53] LABS: EBV EARLY ANTIGEN AB <9.00 U/ML
[2017-07-17 13:56] LABS: CYTOMEGALOVIRUS IGG AB <0.60 U/ML
== END 2017-07-16 18:20 | disposition home or self-care (01) | DRG 864 ==
LOC: C.EDB 19:08 → C.2E 23:11 → ENRESERV 23:23 → OBSVTOIN 07-15 11:42
PROVIDERS: ADMIT Student in an Organized Health Care Education/Training Program; ATTEND Family Medicine
DX: R50.9 Fever, unspecified (principal); Z94.81 Bone marrow transplant status; E11.9 Type 2 diabetes mellitus without complications; I10 Essential (primary) hypertension; I25.10 Atherosclerotic heart disease of native coronary artery without angina pectoris; E78.00 Pure hypercholesterolemia, unspecified; R00.0 Tachycardia, unspecified; B37.9 Candidiasis, unspecified; E78.5 Hyperlipidemia, unspecified; Z85.6 Personal history of leukemia; Z83.3 Family history of diabetes mellitus; Z82.49 Family history of ischemic heart disease and other diseases of the circulatory system; Z79.82 Long term (current) use of aspirin; Z79.4 Long term (current) use of insulin; Z79.2 Long term (current) use of antibiotics; Z95.1 Presence of aortocoronary bypass graft

== ENCOUNTER → 2017-08-15 | Outpatient (CLI) | payer OTHER ==
[~2017-08-15] MED LIST changes: +ASPI81TA28 PO; -ATOV5SUS PO; +GUAI1TAB68 PO; +NYSS/ PO; +OMEG10007 PO; -ONDA4TAB46 PO; -SIRO1TAB PO; +SULF1TAB92 PO
[2017-08-15 13:40] LABS: HEMATOCRIT 35.2 % (42-52)
[2017-08-15 13:52] LABS: ESTIMATED AVERAGE GLUCOSE 131 mg/dl; HA1C FLAG Normal (Normal)
[2017-08-15 14:07] LABS: RATIO 11.8 mcg/mg (0-30.0)
== END | disposition home or self-care (01) ==
LOC: C.LABBC 09:38
PROVIDERS: ATTEND Nurse Practitioner Adult Health
DX: I10 Essential (primary) hypertension (principal); E11.649 Type 2 diabetes mellitus with hypoglycemia without coma; R10.9 Unspecified abdominal pain; E11.39 Type 2 diabetes mellitus with other diabetic ophthalmic complication

== ENCOUNTER → 2017-11-03 | Day surgery (SDC) | payer OTHER ==
[2017-08-26 08:46] VITALS: Ht 182.9 cm; Wt 86.8 kg
[~2017-11-03] VITALS: Ht 182.9 cm; Wt 86.8 kg
[~2017-11-03] MED LIST changes: +500ML BSS 0.3ML EPI 1:1000PF IRRIG ONE; +ACETAMINOPHEN 325 MG TAB PO PRN; +AMVISC PLUS 0.8ML SYRINGE INT OCU ONE; +ATROPINE SULFATE 0.1 MG/ML 5ML SYR IV PRN; +BRIMONIDINE TART 0.2% OP SOLN PER DROP CHARGE ONE; +BRIMONIDINE TARTRATE 0.2% 5ML ONE; +BSS FLUSH ONE; +ENDOCOAT 0.85ML SYRINGE INT OCU ONE; +EpHEDrine SULFATE INJ 50 MG/ML AMP IV PRN; +EpINEphrine INJ 1MG/ML AMP 1 MG/ML AMP ONE; -GUAI1TAB68 PO; +LACTATED RINGER'S 1000ML 500 ML IV SCH; +LIDOCAINE 4% OP SOLN DROP CHARGE ONE; +LIDOCAINE 4% OP SOLN DROP CHARGE OPL SCH; +LIDOCAINE HCL 1% MPF 2 ML VIAL ONE; +LORA-741 PO; -LORA0.5T12 PO; +LOSA1TAB PO; -LOSA50TA6 PO; +MIDAZOLAM HCL 1 MG/ML 2ML VIAL ONE; +MOXIFLOXACIN OPH SOLN PER DROP CHARGE ONE; -NYSS/ PO; +POVIDONE-IODINE OP SOLN 30 ML BTL ONE; +PROPARACAINE 0.5% OP SOLN PER DROP CHARGE OPL SCH; +PROPARACAINE HCL 0.5% OP SOLN 15 ML BTL OPL ONE; -ROSU10TA24 PO; +ROSU10TA35 PO; +TOBRAMYCIN/DEXAMETHASONE OPH OINT PER APPLN CHARGE ONE; +VISCOAT 0.5ML SYRINGE INT OCU ONE
[2017-11-03] MEDS: PHENYLEPHRINE HCL 2.5% OP SOLN PER DROP CHARGE OPL SCH ×2 (07:09→07:16)
[2017-11-03] MEDS: TROPICAMIDE 1% OP SOLN PER DROP CHARGE OPL SCH ×2 (07:10→07:17)
[2017-11-03] MEDS: CYCLOPENTOLATE HCL 1% OP SOLN PER DROP CHARGE OPL SCH ×2 (07:12→07:18)
[2017-11-03] MEDS: KETOROLAC 0.5% OP SOLN PER DROP CHARGE OPL SCH ×2 (07:13→07:19)
[2017-11-03] MEDS: MOXIFLOXACIN OPH SOLN PER DROP CHARGE OPL SCH ×2 (07:14→07:24)
--- NOTE | 2017-11-03 07:35 | History & Physical Bridge - SC ---
H&P Re-Evaluation Bridge Note: I have examined the patient, reviewed the History & Physical and in the interval since the performance of the History & Physical I have noted the following changes of clinical significance: No changes noted
--- NOTE | 2017-11-03 08:09 | [facility] Post Operative Brief Note ---
Immediate Operative Summary Operative Date Nov 03, 2017. Pre-Operative Diagnosis Left Eye Cataract Phacoemulsification With Intraocular Lens Implant Post-Operative Diagnosis Same Procedure(s) Performed Left Eye Cataract Phacoemulsification With Intraocular Lens Implant Surgeon Dr. Winslow Fuel Assembler Surgeon(s) None Estimated Blood Loss None Findings Consistent with Post-Op Diagnosis Specimens None Drains None Anesthesia Type MAC Complication(s) none Disposition Accompanied Pt To Recovery: no Disposition: Recovery Room / PACU
--- NOTE | 2017-11-03 08:10 | Discharge Instructions-SurgCtr ---
Discharge Instructions Date of Service Nov 03, 2017. Visit Reason for Visit: Cataract Left Eye Discharge Discharge Diagnosis / Problem: cataract left eye Discharge Goals Goal(s): Improve function Activity Recommendations Activity Limitations: per Instructions/Follow-up section Lifting Limitations: no more than 5 pounds Anesthesia . Post Anesthesia Instructions: If you have had General Anesthesia or IV Sedation: * Do not drive today. * Resume driving when surgeon permits. * Do not make important decisions or sign legal documents today. * Call surgeon for: 1. Temperature elevations greater than 101 degrees F. 2. Uncontrollable pain. 3. Excessive bleeding. 4. Persistent nausea and vomiting. 5. Medication intolerance (nausea, vomiting or rash). * For nausea and vomiting use only clear liquids such as: tea, soda, bouillon until nausea subsides, then gradually increase diet as tolerated. * If you have any concerns or questions, call your surgeon's office. If physician is unavailable and it is an emergency, call 911 or go to the nearest emergency room. . Instructions / Follow-Up Instructions / Follow-Up ACTIVITY RECOMMENDATIONS: * Light activities * You may walk outside, read, watch television. * Mild irritation and blurred vision are common for the first few days, redness around the white part of the eye is common. MEDICATIONS: Resume previous medications unless instructed otherwise by your surgeon. Eye drops (today and tomorrow): Cipro - one drop in operative eye every 2 hours while awake Prednisolone 1% - one drop in operative eye every 2 hours while awake Ketorolac - one drop in operative eye every 2 hours while awake SPECIAL CARE INSTRUCTIONS: * If any problems or concerns, please call Dr. Winslow's office at . * Keep plastic shield taped over eye to sleep at night. * Keep plastic shield taped over eye except to administer eye drops. * Keep plastic shield on until office visit the following day. FOLLOW UP VISIT: Follow-up with Dr. Winslow in the [place] office as scheduled. If not already scheduled, please call the office at . Diet Recommendations Home Diet: resume previous diet Procedures Procedures Performed: Left Eye Cataract Phacoemulsification With Intraocular Lens Implant Pending Studies Studies pending at discharge: no Medical Emergencies . Who to Call and When: Medical Emergencies: If at any time you feel your situation is an emergency, please call 911 immediately. . Non-Emergent Contact Non-Emergency issues call your: Credit Relationship Manager . . "Provider Documentation" section prepared by Rajiv Winslow. .
--- NOTE | 2017-11-03 08:14 | [facility] Operative Report ---
Operative Report Operative Date Nov 03, 2017. Pre-Operative Diagnosis Left Eye Cataract Phacoemulsification With Intraocular Lens Implant Post-Operative Diagnosis Same Procedure(s) Performed Left Eye Cataract Phacoemulsification With Intraocular Lens Implant Surgeon Dr. Winslow Scooping Machine Tender Surgeon(s) None Estimated Blood Loss None Findings cataract left eye Fluids see anesthesia record Specimens None Drains None Anesthesia Type MAC Complication(s) none Disposition no Recovery Room / PACU Indications decreased vision left eye Description of Procedure After informed consent was obtained in the holding area the patient was wheeled back to the femtosecond laser room. The left eye was docked with the laser and the capsulorrhexis, prechop of the lens, and primary incision at 3 o' clock were made by the laser. The patient was then taken to the operating room where cardiac monitoring leads and oxygen by nasal cannula was administered by Anesthesia. Gentle IV sedation was given, and the patient's left eye was prepped and draped in usual sterile fashion. A wire lid speculum was placed into the left eye and the operating microscope was swung into position. Using 0.12 forceps and a Supersharp blade a paracentesis port was made 2 o'clock hours away from the 3 o'clock position of the patient's left eye. 1% non-preserved Lidocaine was then injected into the anterior chamber for anesthesia. Endocoat was then injected into the anterior chamber. A Thang spatula was then used to enter the shelved clear corneal incision at the 3 o'clock position of the left eye. Amvisc was injected into the anterior chamber and a cystotome and Utrata forceps were used to perform a curvilinear capsulorrhexis. BSS on a hydrodissection cannula was used to hydrodissect the lens nucleus away from the capsular bag. The phacoemulsification handpiece was then used in a stop and chop fashion to remove the lens nucleus. The irrigation and aspiration handpiece was then used to remove the residual cortical material. Amvisc was injected into the capsular bag and anterior chamber and an AMRITA ZXR00 20.0 Diopter intraocular lens was injected into the capsular bag. Irrigation and aspiration handpiece was used to remove the residual viscoelastic material. The wounds were hydrated and noted to be watertight. The wire lid speculum was removed from the eye. Vigamox, Brimonidine, and TobraDex ointment were placed on the eye and it was shielded. It should be noted that EndoCoat was used extensively during the case to protect the cornea endothelium. DISPOSITION: The patient tolerated the procedure well and was wheeled to the post anesthesia care unit in stable condition. I attest to the content of the Intraoperative Record and any orders documented therein. Any exceptions are noted below. I attest to the content of the Intraoperative Record and any orders documented therein. Any exceptions are noted below.
[2017-11-03 08:15] VITALS: TEMP 36.5
[2017-11-03 08:40] VITALS: BP 117/73; O2SAT 99
--- NOTE | 2017-11-03 08:50 | Anesthesia Progress Nt - [facility] ---
Anesthesia Post Op Note Date & Time Nov 03, 2017 at 08:50 Vital Signs Pain Intensity: 0 Vital Signs Past 12 Hours Date Time Temp Pulse Resp B/P (MAP) Pulse Ox O2 Delivery O2 Flow Rate FiO2 11/03/17 07:46 60 16 136/65 96 Room Air 11/03/17 07:40 58 16 122/71 96 Room Air 11/03/17 06:59 36.9 78 16 130/78 (95) 97 Room Air Notes Mental Status: alert / awake / arousable, participated in evaluation Pt Amnestic to Procedure: Yes Nausea / Vomiting: adequately controlled Pain: adequately controlled Airway Patency, RR, SpO2: stable & adequate BP & HR: stable & adequate Hydration State: stable & adequate Anesthetic Complications: no major complications apparent
== END | disposition home or self-care (01) ==
LOC: X.SURG 06:40
PROVIDERS: ATTEND Ophthalmology
DX: E11.36 Type 2 diabetes mellitus with diabetic cataract (principal); H26.9 Unspecified cataract; I25.10 Atherosclerotic heart disease of native coronary artery without angina pectoris; I25.2 Old myocardial infarction; Z95.1 Presence of aortocoronary bypass graft; I10 Essential (primary) hypertension; Z86.73 Personal history of transient ischemic attack (TIA), and cerebral infarction without residual deficits; Z79.899 Other long term (current) drug therapy

== ENCOUNTER → 2017-11-17 | Day surgery (SDC) | payer OTHER ==
[2017-11-13 16:26] VITALS: Ht 182.9 cm; Wt 86.8 kg
[~2017-11-17] VITALS: Ht 182.9 cm; Wt 86.8 kg
[~2017-11-17] MED LIST changes: +ACETAMINOPHEN 120 MG SUPP PR ONE; -LIDOCAINE 4% OP SOLN DROP CHARGE OPL SCH; +LIDOCAINE 4% OP SOLN DROP CHARGE OPR SCH; -PROPARACAINE 0.5% OP SOLN PER DROP CHARGE OPL SCH; +PROPARACAINE 0.5% OP SOLN PER DROP CHARGE OPR SCH; -PROPARACAINE HCL 0.5% OP SOLN 15 ML BTL OPL ONE; +PROPARACAINE HCL 0.5% OP SOLN 15 ML BTL OPR ONE; -SULF1TAB92 PO; -VISCOAT 0.5ML SYRINGE INT OCU ONE
[2017-11-17] MEDS: PHENYLEPHRINE HCL 2.5% OP SOLN PER DROP CHARGE OPR SCH ×2 (06:30→06:36)
[2017-11-17] MEDS: TROPICAMIDE 1% OP SOLN PER DROP CHARGE OPR SCH ×2 (06:31→06:37)
[2017-11-17] MEDS: CYCLOPENTOLATE HCL 1% OP SOLN PER DROP CHARGE OPR SCH ×2 (06:32→06:38)
[2017-11-17] MEDS: KETOROLAC 0.5% OP SOLN PER DROP CHARGE OPR SCH ×2 (06:33→06:39)
[2017-11-17] MEDS: MOXIFLOXACIN OPH SOLN PER DROP CHARGE OPR SCH ×2 (06:34→06:42)
--- NOTE | 2017-11-17 07:42 | [facility] Post Operative Brief Note ---
Immediate Operative Summary Operative Date Nov 17, 2017. Pre-Operative Diagnosis Cataract Right Eye Post-Operative Diagnosis Same Procedure(s) Performed Right Cataract Phacoemulsification With Intraocular Lens Implant; Sachinfocarter Lens Surgeon Dr. Winslow [facility] Adviser Surgeon(s) None Estimated Blood Loss 0ml Findings Consistent with Post-Op Diagnosis Specimens None Drains None Anesthesia Type MAC Complication(s) none Disposition Accompanied Pt To Recovery: no Disposition: Recovery Room / PACU
[2017-11-17 07:44] VITALS: TEMP 36.3
--- NOTE | 2017-11-17 07:45 | Discharge Instructions-[facility] ---
Discharge Instructions Date of Service Nov 17, 2017. Visit Reason for Visit: Cataract Right Eye Discharge Discharge Diagnosis / Problem: cataract right eye Discharge Goals Goal(s): Improve function Activity Recommendations Activity Limitations: per Instructions/Follow-up section Lifting Limitations: no more than 5 pounds Anesthesia . Post Anesthesia Instructions: If you have had General Anesthesia or IV Sedation: * Do not drive today. * Resume driving when surgeon permits. * Do not make important decisions or sign legal documents today. * Call surgeon for: 1. Temperature elevations greater than 101 degrees F. 2. Uncontrollable pain. 3. Excessive bleeding. 4. Persistent nausea and vomiting. 5. Medication intolerance (nausea, vomiting or rash). * For nausea and vomiting use only clear liquids such as: tea, soda, bouillon until nausea subsides, then gradually increase diet as tolerated. * If you have any concerns or questions, call your surgeon's office. If physician is unavailable and it is an emergency, call 911 or go to the nearest emergency room. . Instructions / Follow-Up Instructions / Follow-Up ACTIVITY RECOMMENDATIONS: * Light activities * You may walk outside, read, watch television. * Mild irritation and blurred vision are common for the first few days, redness around the white part of the eye is common. MEDICATIONS: Resume previous medications unless instructed otherwise by your surgeon. Eye drops (today and tomorrow): Cipro - one drop in operative eye every 2 hours while awake Prednisolone 1% - one drop in operative eye every 2 hours while awake SPECIAL CARE INSTRUCTIONS: * If any problems or concerns, please call Dr. Winslow's office at . * Keep plastic shield taped over eye to sleep at night. * Keep plastic shield taped over eye except to administer eye drops. * Keep plastic shield on until office visit the following day. FOLLOW UP VISIT: Follow-up with Dr. Winslow in the [place] office as scheduled. If not already scheduled, please call the office at . Diet Recommendations Home Diet: resume previous diet Procedures Procedures Performed: Right Cataract Phacoemulsification With Intraocular Lens Implant; Symfony Lens Pending Studies Studies pending at discharge: no Medical Emergencies . Who to Call and When: Medical Emergencies: If at any time you feel your situation is an emergency, please call 911 immediately. . Non-Emergent Contact Non-Emergency issues call your: [facility] . . "Provider Documentation" section prepared by Rajiv Winslow. .
--- NOTE | 2017-11-17 07:49 | [facility] Operative Report ---
Operative Report Operative Date Nov 17, 2017. Pre-Operative Diagnosis Cataract Right Eye Post-Operative Diagnosis Same Procedure(s) Performed Right Cataract Phacoemulsification With Intraocular Lens Implant; Symfony Lens Surgeon Dr. Winslow [employer] Support Analyst Surgeon(s) None Estimated Blood Loss 0ml Findings cataract right eye, posterior capsular rupture right eye Specimens None Drains None Anesthesia Type MAC Complication(s) none Disposition no Recovery Room / PACU Indications decreased vision right eye Description of Procedure After informed consent was obtained in the holding area the patient was wheeled back to the femtosecond laser room. The right eye was docked with the laser and the capsulorrhexis, prechop of the lens, and primary incision were made by the laser. The patient was then taken to the operating room where cardiac monitoring leads and oxygen by nasal cannula was administered by Anesthesia. Gentle IV sedation was given, and the patient's right eye was prepped and draped in usual sterile fashion. A wire lid speculum was placed into the righ eye and the operating microscope was swung into position. Using 0.12 forceps and a Supersharp blade a paracentesis port was made 2 o'clock hours away from the 9 o'clock position of the patient's righ eye. 1% non-preserved Lidocaine was then injected into the anterior chamber for anesthesia. A Thang spatula was then used to enter the shelved clear corneal incision at the 9 o'clock position of the right eye. Amvisc was injected into the anterior chamber and a cystotome and Utrata forceps were used to perform a curvilinear capsulorrhexis. BSS on a hydrodissection cannula was used to hydrodissect the lens nucleus away from the capsular bag. The phacoemulsification handpiece was then used in a stop and chop fashion to remove the lens nucleus. The irrigation and aspiration handpiece was then used to remove the residual cortical material. At the conclusion of cortex removal it was noted that there was a giant posterior capsular tear. Amvisc was injected into the capsular bag and anterior chamber and a [employer]ch [employer] Lomb LI61AO 18.5 Diopter intraocular lens was injected into the sulcus. Irrigation and aspiration handpiece was used to remove the residual viscoelastic material. The wounds were hydrated and noted to be watertight. The wire lid speculum was removed from the eye. Vigamox, Brimonidine, and TobraDex ointment were placed on the eye and it was shielded. It should be noted that EndoCoat was used extensively during the case to protect the cornea endothelium. DISPOSITION: The patient tolerated the procedure well and was wheeled to the post anesthesia care unit in stable condition. I attest to the content of the Intraoperative Record and any orders documented therein. Any exceptions are noted below. I attest to the content of the Intraoperative Record and any orders documented therein. Any exceptions are noted below.
[2017-11-17 08:07] VITALS: BP 132/76; PULSE 56; O2SAT 94
--- NOTE | 2017-11-17 08:28 | Anesthesiology Progress Note ---
Anesthesia Post Op Note Date & Time Nov 17, 2017 at 08:28 Vital Signs Pain Intensity: 1 Vital Signs Past 12 Hours Date Time Temp Pulse Resp B/P (MAP) Pulse Ox O2 Delivery O2 Flow Rate FiO2 11/17/17 08:07 56 16 132/76 (94) 94 Room Air 11/17/17 07:44 36.3 57 16 144/73 (96) 95 Room Air 11/17/17 07:06 59 18 133/67 96 11/17/17 07:00 57 16 122/62 94 11/17/17 06:25 36.9 68 16 134/75 (94) 97 Room Air Notes Mental Status: alert / awake / arousable, participated in evaluation Pt Amnestic to Procedure: Yes Nausea / Vomiting: adequately controlled Pain: adequately controlled Airway Patency, RR, SpO2: stable & adequate BP & HR: stable & adequate Hydration State: stable & adequate Anesthetic Complications: no major complications apparent
== END | disposition home or self-care (01) ==
LOC: X.SURG 06:09
PROVIDERS: ATTEND Ophthalmology
DX: E11.36 Type 2 diabetes mellitus with diabetic cataract (principal); H26.9 Unspecified cataract; Z98.42 Cataract extraction status, left eye; H91.92 Unspecified hearing loss, left ear; E78.5 Hyperlipidemia, unspecified; I25.2 Old myocardial infarction; Z95.5 Presence of coronary angioplasty implant and graft; Z79.82 Long term (current) use of aspirin; Z79.899 Other long term (current) drug therapy; Z79.4 Long term (current) use of insulin; Z86.73 Personal history of transient ischemic attack (TIA), and cerebral infarction without residual deficits

== ENCOUNTER → 2017-12-22 | Outpatient (CLI) | payer OTHER ==
[~2017-12-22] MED LIST changes: -500ML BSS 0.3ML EPI 1:1000PF IRRIG ONE; -ACETAMINOPHEN 120 MG SUPP PR ONE; -ACETAMINOPHEN 325 MG TAB PO PRN; -AMVISC PLUS 0.8ML SYRINGE INT OCU ONE; -ATROPINE SULFATE 0.1 MG/ML 5ML SYR IV PRN; -BRIMONIDINE TART 0.2% OP SOLN PER DROP CHARGE ONE; -BRIMONIDINE TARTRATE 0.2% 5ML ONE; -BSS FLUSH ONE; -ENDOCOAT 0.85ML SYRINGE INT OCU ONE; -EpHEDrine SULFATE INJ 50 MG/ML AMP IV PRN; -EpINEphrine INJ 1MG/ML AMP 1 MG/ML AMP ONE; -LACTATED RINGER'S 1000ML 500 ML IV SCH; -LIDOCAINE 4% OP SOLN DROP CHARGE ONE; -LIDOCAINE 4% OP SOLN DROP CHARGE OPR SCH; -LIDOCAINE HCL 1% MPF 2 ML VIAL ONE; -MIDAZOLAM HCL 1 MG/ML 2ML VIAL ONE; -MOXIFLOXACIN OPH SOLN PER DROP CHARGE ONE; -POVIDONE-IODINE OP SOLN 30 ML BTL ONE; -PROPARACAINE 0.5% OP SOLN PER DROP CHARGE OPR SCH; -PROPARACAINE HCL 0.5% OP SOLN 15 ML BTL OPR ONE; -TOBRAMYCIN/DEXAMETHASONE OPH OINT PER APPLN CHARGE ONE
[2017-12-22 16:36] LABS: HEMATOCRIT 34.3 % (42-52); MEAN CELL VOLUME 93.5 fL (80-100); MEAN CORPUSCULAR HEMOGLOBIN 32.7 pg (25-34); RED CELL DISTRIBUTION WIDTH SD 47.5 fL (36.4-46.3); WHITE BLOOD COUNT 4.71 K/uL (4.8-10.8)
[2017-12-22 16:41] LABS: MEAN PLATELET VOLUME 9.2 fL (7.4-10.4); PLATELET COUNT 56 K/uL (130-400)
[2017-12-22 16:56] LABS: ALBUMIN 3.9 gm/dl (3.4-5.0); ALT/SGPT 43 U/L (12-78); AST/SGOT 52 U/L (15-37); BLOOD UREA NITROGEN 24 mg/dl (7-18); CALCIUM 9.4 mg/dl (8.5-10.1); CARBON DIOXIDE 28 mmol/L (21-32); CREATININE 1.07 mg/dl (0.60-1.40); GLUCOSE 136 mg/dl (70-99); POTASSIUM 4.2 mmol/L (3.5-5.1); SODIUM 141 mmol/L (136-145)
[2017-12-22 16:59] LABS: ALKALINE PHOSPHATASE 72 U/L (45-117)
== END | disposition home or self-care (01) ==
LOC: C.LAB 16:18
PROVIDERS: ATTEND Nurse Practitioner
DX: C92.11 Chronic myeloid leukemia, BCR/ABL-positive, in remission (principal)

== ENCOUNTER → 2018-01-14 | Outpatient (CLI) | payer OTHER ==
--- NOTE | 2018-01-14 09:51 | DIAGNOSTIC IMAGING REPORT ---
CHEST 2 VIEWS ROUTINE CLINICAL HISTORY: Acute upper respiratory infection dyspnea COMPARISON STUDY: 07/14/2017 FINDINGS: Prior median sternotomy. Diaphragms smooth. Lungs are clear. IMPRESSION: No acute process. The above report was generated using voice recognition software. It may contain grammatical, syntax or spelling errors. Electronically signed by: Hua Georges M.D. 01/14/2018 9:49 AM Dictated Date/Time: 01/14/2018 9:49 AM
[2018-01-14 10:30] LABS: HEMATOCRIT 31.4 % (42-52); MEAN CELL VOLUME 92.9 fL (80-100); MEAN CORPUSCULAR HEMOGLOBIN 32.5 pg (25-34); RED CELL DISTRIBUTION WIDTH CV 13.1 % (11.5-14.5); RED CELL DISTRIBUTION WIDTH SD 44.5 fL (36.4-46.3); WHITE BLOOD COUNT 5.67 K/uL (4.8-10.8)
[2018-01-14 10:31] LABS: MEAN PLATELET VOLUME 10.3 fL (7.4-10.4); PLATELET COUNT 65 K/uL (130-400)
[2018-01-14 10:51] LABS: BASO % 0.4 %; BASO ABS # 0.02 K/uL (0-0.2); EOS % 3.7 %; EOS ABS # 0.21 K/uL (0-0.5); IG# 0.01 K/uL (0.00-0.02); LYMPH ABS # 0.91 K/uL (1.2-3.4); MONO % 9.5 %; MONO ABS # 0.54 K/uL (0.11-0.59); NEUT % 70.2 %; NEUT ABS # 3.98 K/uL (1.4-6.5)
[2018-01-14 10:59] LABS: ALBUMIN 3.1 gm/dl (3.4-5.0); ALT/SGPT 77 U/L (12-78); BLOOD UREA NITROGEN 20 mg/dl (7-18); CALCIUM 9.4 mg/dl (8.5-10.1); CARBON DIOXIDE 28 mmol/L (21-32); GLUCOSE 279 mg/dl (70-99); POTASSIUM 4.2 mmol/L (3.5-5.1); SODIUM 133 mmol/L (136-145)
[2018-01-14 11:02] LABS: ALKALINE PHOSPHATASE 107 U/L (45-117); AST/SGOT 72 U/L (15-37); TOTAL PROTEIN 7.4 gm/dl (6.4-8.2)
== END | disposition home or self-care (01) ==
LOC: C.RAD1850 09:23
PROVIDERS: ATTEND Internal Medicine
DX: J06.9 Acute upper respiratory infection, unspecified (principal)

== ENCOUNTER → 2018-01-16 | Outpatient (CLI) | payer OTHER | END | disposition home or self-care (01) | LOC: C.LAB 12:49 | PROVIDERS: ATTEND Internal Medicine | DX: R53.83 Other fatigue (principal); Z94.81 Bone marrow transplant status; R50.9 Fever, unspecified ==

== ENCOUNTER → 2018-01-22 | Outpatient (CLI) | payer OTHER ==
[2018-01-22 12:25] LABS: HEMATOCRIT 32.3 % (42-52); HEMOGLOBIN 11.2 g/dL (14.0-18.0); MEAN CELL VOLUME 93.4 fL (80-100); MEAN CORPUSCULAR HEMOGLOBIN 32.4 pg (25-34); MEAN CORPUSCULAR HGB CONC 34.7 g/dl (32-36); RED CELL DISTRIBUTION WIDTH CV 13.1 % (11.5-14.5); RED CELL DISTRIBUTION WIDTH SD 44.4 fL (36.4-46.3); WHITE BLOOD COUNT 5.48 K/uL (4.8-10.8)
[2018-01-22 12:26] LABS: MEAN PLATELET VOLUME 10.9 fL (7.4-10.4); PLATELET COUNT 87 K/uL (130-400)
[2018-01-22 12:44] LABS: BASO % 0.7 %; BASO ABS # 0.04 K/uL (0-0.2); EOS % 2.6 %; EOS ABS # 0.14 K/uL (0-0.5); IG# 0.01 K/uL (0.00-0.02); LYMPH % 15.3 %; LYMPH ABS # 0.84 K/uL (1.2-3.4); MONO % 7.3 %; NEUT % 73.9 %; NEUT ABS # 4.05 K/uL (1.4-6.5)
[2018-01-22 13:07] LABS: ALBUMIN 2.9 gm/dl (3.4-5.0); ALKALINE PHOSPHATASE 126 U/L (45-117); ALT/SGPT 165 U/L (12-78); BLOOD UREA NITROGEN 15 mg/dl (7-18); CALCIUM 9.5 mg/dl (8.5-10.1); CARBON DIOXIDE 26 mmol/L (21-32); CREATININE 1.03 mg/dl (0.60-1.40); GLUCOSE 230 mg/dl (70-99); POTASSIUM 4.3 mmol/L (3.5-5.1); SODIUM 134 mmol/L (136-145)
[2018-01-22 13:08] LABS: AST/SGOT 98 U/L (15-37); TOTAL PROTEIN 7.7 gm/dl (6.4-8.2)
== END | disposition home or self-care (01) ==
LOC: C.LAB 10:13
PROVIDERS: ATTEND Internal Medicine
DX: B49 Unspecified mycosis (principal)

== ENCOUNTER → 2018-02-13 | Outpatient (CLI) | payer OTHER ==
[2018-02-13 10:55] LABS: HEMOGLOBIN A1C 7.3 % (4.5-5.6)
[2018-02-13 13:27] LABS: ALBUMIN 3.3 gm/dl (3.4-5.0); ALKALINE PHOSPHATASE 81 U/L (45-117); ALT/SGPT 41 U/L (12-78); AST/SGOT 32 U/L (15-37); BLOOD UREA NITROGEN 12 mg/dl (7-18); CARBON DIOXIDE 28 mmol/L (21-32); CHOLESTEROL 153 mg/dl (0-200); CREATININE 0.89 mg/dl (0.60-1.40); GLUCOSE 210 mg/dl (70-99); LDL CHOLESTEROL CALCULATED 72 mg/dl; POTASSIUM 4.5 mmol/L (3.5-5.1); SODIUM 139 mmol/L (136-145); TOTAL PROTEIN 7.2 gm/dl (6.4-8.2)
== END | disposition home or self-care (01) ==
LOC: C.LAB 09:27
PROVIDERS: ATTEND Nurse Practitioner Adult Health
DX: E11.39 Type 2 diabetes mellitus with other diabetic ophthalmic complication (principal); E55.9 Vitamin D deficiency, unspecified; R53.83 Other fatigue; Z79.4 Long term (current) use of insulin

== ENCOUNTER → 2018-05-21 | Outpatient (CLI) | payer OTHER ==
[~2018-05-21] MED LIST changes: +COLC1TAB25 PO; +ROSU10TA26 PO; -ROSU10TA35 PO
== END | disposition home or self-care (01) ==
LOC: C.LAB 10:59
PROVIDERS: ATTEND Internal Medicine Cardiovascular Disease
DX: I25.10 Atherosclerotic heart disease of native coronary artery without angina pectoris (principal); E78.5 Hyperlipidemia, unspecified; E11.9 Type 2 diabetes mellitus without complications